=== PATIENT | female | born 1940 | race Caucasian/White ===

== ENCOUNTER 2016-08-11 12:48 | Emergency (ER) | payer BC, MEDICARE ==
[2016-08-11 13:04] VITALS: TEMP 97.4
[2016-08-11 14:19] LABS: Basophils % (A) 0 %; CH 31.1; CHCM 32.1; Eosinophils # (A) 0.1 k/uL (0-0.7); Eosinophils % (A) 0 %; HCT 49.9 % (34.0-46.0); HDW 2.54; HGB 15.6 gm/dL (11.4-16.0); Luc # (Auto) 0.12; Luc % (Auto) 1; Lymphocytes # (A) 1.9 k/uL (1.0-4.8); Lymphocytes % (A) 17 %; MCH 30.4 pg (25.0-35.0); MCHC 31.3 g/dL (31.0-37.0); MCV 97.4 fL (80.0-100.0); Mean Platelet Volume 7.5; Monocytes # (A) 0.9 k/uL (0-1.0); Monocytes % (A) 8 %; Neutrophils # (A) 8.1 k/uL (1.3-7.7); Neutrophils % (A) 73 %; RBC 5.12 m/uL (3.80-5.40); RDW 14.7 % (11.5-15.5); WBC 11.1 k/uL (3.8-10.6); WBC (Perox) 11.35
--- NOTE | 2016-08-11 14:23 | XR ---
EXAMINATION TYPE: XR chest 1V portable DATE OF EXAM: 08/11/2016 2:18 PM COMPARISON: Prior chest x-ray 29 July 2016 HISTORY: Dyspnea TECHNIQUE: Single frontal view of the chest is obtained. FINDINGS: There is no focal air space opacity, pleural effusion, or pneumothorax seen. The cardiac silhouette size is within normal limits. Patient is rotated, there are overlying cardiac leads. Promi nent lung volume may be indicative of underlying COPD. Interstitium is mildly prominent. Postop patterson e noted to the lower thoracic vertebral body as on previous exam. The osseous structures are intact. IMPRESSION: No acute process.
[2016-08-11 14:35] LABS: Calcium 9.4 mg/dL (8.4-10.2); Magnesium 1.9 mg/dL (1.6-2.3); Total Bilirubin 0.6 mg/dL (0.2-1.3); Total Protein 6.6 g/dL (6.3-8.2)
[2016-08-11] MEDS ORDERED: predniSONE 20 MG TAB PO STA (14:35)
[2016-08-11 15:04] LABS: ABG PH 7.41 (7.35-7.45)
[2016-08-11 15:05] LABS: ABG PCO2 28 mmHg (35-45)
[2016-08-11 15:07] LABS: ABG HCO3 18 mmol/L (21-25); ABG PO2 95 mmHg (83-108)
[2016-08-11 15:08] LABS: ABG Base Excess -5.9 mmol/L; ABG TCO2 19 mmol/L (19-24)
--- NOTE | 2016-08-11 15:47 | ED ---
Weakness HPI - General Chief complaint: Weakness Stated complaint: Weakness Time Seen by Provider: 08/11/16 13:11 Source: patient, RN notes reviewed Mode of arrival: ambulatory Limitations: no limitations - History of Present Illness Initial comments: Patient's a 76-year-old woman with history of COPD who presents to be evaluated for generalized fatigue, dyspnea, poor appetite, and her family also notes that she had been having very depressed mood over the prior couple of days. They do acknowledge that her mood seems to have improved here. The patient does admit some depression but denies suicidality. Family was also concerned because at one point yesterday they had noted she was attempting to light a cigarette using a bottle And they were concerned she may been hallucinating. She has not been hallucinating today. Patient denies fever or chills. She denies change in sputum. Patient denies chest pain, change in urination, leg pain or swelling. MD Complaint: generalized weakness, lack of energy, difficulty walking -: days(s) Location: generalized Improves with: none Worsens with: none Associated Symptoms: loss of appetite, shortness of breath - Related Data Home Medications Medication Instructions Recorded Confirmed Sertraline HCl [Zoloft] 200 mg PO DAILY 09/16/14 08/11/16 Levothyroxine Sodium [Synthroid] 75 mcg PO DAILY 11/25/14 08/11/16 Montelukast [Singulair] 10 mg PO HS 11/25/14 08/11/16 Acetaminophen Tab [Tylenol Tab] 500 mg PO Q4H PRN 12/02/14 08/11/16 Cyclobenzaprine [Flexeril] 10 mg PO HS 05/12/15 08/11/16 Metoprolol Tartrate [Lopressor] 25 mg PO BID 05/12/15 08/11/16 Sennosides-Docusate Sodium 1 tab PO HS PRN 05/12/15 08/11/16 [Senokot-S] Warfarin [Coumadin] 2.5 mg PO HS 05/12/15 08/11/16 Atorvastatin [Lipitor] 40 mg PO HS 10/20/15 08/11/16 Gabapentin [Neurontin] 1,200 mg PO BID 10/20/15 08/11/16 Ipratropium-Albuterol Nebulize 3 ml INHALATION QID PRN 10/20/15 08/11/16 [Duoneb 0.5 mg-3 mg/3 ml Soln] Multivitamins, Thera [Multivitamin] 1 tab PO DAILY 10/20/15 08/11/16 Nitroglycerin Sl Tabs [Nitrostat] 0.4 mg SUBLINGUAL Q5M PRN 10/20/15 08/11/16 Previous Rx's Medication Instructions Recorded predniSONE 60 mg PO DAILY #30 tab 08/11/16 Allergies Allergy/AdvReac Type Severity Reaction Status Date / Time iodine Allergy Severe throat Verified 08/11/16 13:37 Swelling latex Allergy Severe throat Verified 08/11/16 13:37 swelling codeine Allergy Unknown Verified 08/11/16 13:37 Penicillins Allergy Rash/Hives Verified 08/11/16 13:37 doxycycline AdvReac Nausea & Verified 08/11/16 13:37 Vomiting Review of Systems ROS Statement: Those systems with pertinent positive or pertinent negative responses have been documented in the HPI. ROS Other: All systems not noted in ROS Statement are negative. Constitutional: Reports: weakness (Generalized). Denies: fever, chills Respiratory: Reports: cough, dyspnea, wheezes. Denies: hemoptysis Cardiovascular: Reports: dyspnea on exertion. Denies: chest pain, palpitations , orthopnea, edema, syncope Gastrointestinal: Denies: abdominal pain, nausea, vomiting, melena Genitourinary: Denies: dysuria, hematuria Musculoskeletal: Denies: back pain Skin: Denies: rash Neurological: Reports: as per HPI, weakness (Generalized), confusion. 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 stone arthroscopic knee surgery, bilateral cataract removal, Past Anesthesia/Blood Transfusion Reactions: No Reported Reaction Additional Past Anesthesia/Blood Transfusion Reaction / Comment(s): . Date of Last Stent Placement:: 2014(not sure month) Past Psychological History: Anxiety Additional Psychological History / Comment(s): . Smoking Status: Current some day smoker Past Alcohol Use History: None Reported Additional Past Alcohol Use History / Comment(s): started smoking age 30 Past Drug Use History: None Reported - Past Family History Father Family Medical History: Cancer Additional Family Medical History / Comment(s): Father had massive GA at age 66 yrs. He from CVA at age 79yrs. Mother Family Medical History: CVA/TIA, Deep Vein Thrombosis (DVT), Pulmonary Embolus Additional Family Medical History / Comment(s): Mother of CVA at age 79 yrs. General Exam Limitations: no limitations General appearance: alert, in no apparent distress, cachectic Head exam: Present: atraumatic, normocephalic Eye exam: Present: normal appearance. Absent: scleral icterus, conjunctival injection ENT exam: Present: mucous membranes dry Neck exam: Present: normal inspection Respiratory exam: Present: wheezes, decreased breath sounds. Absent: respiratory distress, rales, rhonchi, stridor, chest wall tenderness Cardiovascular Exam: Present: regular rate, normal rhythm, normal heart sounds. Absent: systolic murmur, diastolic murmur, rubs, gallop GI/Abdominal exam: Present: soft. Absent: distended, tenderness, guarding, rebound Extremities exam: Present: normal inspection, normal capillary refill. Absent: pedal edema, calf tenderness Back exam: Present: normal inspection. Absent: CVA tenderness (R), CVA tenderness (L) Neurological exam: Present: alert, oriented X3, CN II-XII intact, normal gait. Absent: motor sensory deficit Psychiatric exam: Present: normal affect Skin exam: Present: warm, dry, intact. Absent: cyanosis, diaphoretic, pallor Course Vital Signs 08/11/16 08/11/16 12:59 16:05 Temperature 97.4 F L Pulse Rate 50 L 70 Respiratory 18 16 Rate Blood Pressure 136/82 153/88 O2 Sat by Pulse 100 93 L Oximetry EKG Findings - EKG Results: EKG: interpreted by ERMD, sinus rhythm, normal axis, normal QRS, normal ST/T Medical Decision Making - Medical Decision Making Patient is a 76-year-old woman who does appear to be having COPD exacerbation. She had treatments and steroids here. The patient was then feeling better. I discussed admission, given her second visit this month. The patient states that her preference is to go home. I am concerned about how she is doing but will defer at this point to her request to go home, I did phone the office machines sales representative and she can be seen at 8:30 in the morning. Discussed return parameters and the patient will return should her symptoms recur or if there is any worsening in anyway. - Lab Data Result diagrams: 08/11/16 12:41 08/11/16 12:41 Lab Results 08/11/16 08/11/16 08/11/16 Range/Units 12:41 12:41 12:41 WBC 11.1 H (3.8-10.6) k/uL RBC 5.12 (3.80-5.40) m/uL Hgb 15.6 (11.4-16.0) gm/dL Hct 49.9 H (34.0-46.0) % MCV 97.4 (80.0-100.0) fL MCH 30.4 (25.0-35.0) pg MCHC 31.3 (31.0-37.0) g/dL RDW 14.7 (11.5-15.5) % Plt Count 365 (150-450) k/uL Neutrophils % 73 % Lymphocytes % 17 % Monocytes % 8 % Eosinophils % 0 % Basophils % 0 % Neutrophils # 8.1 H (1.3-7.7) k/uL Lymphocytes # 1.9 (1.0-4.8) k/uL Monocytes # 0.9 (0-1.0) k/uL Eosinophils # 0.1 (0-0.7) k/uL Basophils # 0.0 (0-0.2) k/uL Sample Site ABG pH (7.35-7.45) ABG pCO2 (35-45) mmHg ABG pO2 (83-108) mmHg ABG HCO3 (21-25) mmol/L ABG Total CO2 (19-24) mmol/L ABG O2 Saturation (94-97) % ABG Base Excess mmol/L FiO2 % Sodium 145 (137-145) mmol/L Potassium 4.0 (3.5-5.1) mmol/L Chloride 110 H (98-107) mmol/L Carbon Dioxide 21 L (22-30) mmol/L Anion Gap 14 mmol/L BUN 15 (7-17) mg/dL Creatinine 1.11 H (0.52-1.04) mg/dL Est GFR (MDRD) Af Amer 58 (>60 ml/min/1.73 sqM) Est GFR (MDRD) Non-Af 48 (>60 ml/min/1.73 sqM) Glucose 113 H (74-99) mg/dL Plasma Lactic Acid Darryl 1.2 (0.7-2.0) mmol/L Calcium 9.4 (8.4-10.2) mg/dL Magnesium 1.9 (1.6-2.3) mg/dL Total Bilirubin 0.6 (0.2-1.3) mg/dL AST 25 (14-36) U/L ALT 32 (9-52) U/L Alkaline Phosphatase 86 (38-126) U/L Troponin I (0.000-0.034) ng/mL Total Protein 6.6 (6.3-8.2) g/dL Albumin 3.6 (3.5-5.0) g/dL 08/11/16 08/11/16 Range/Units 12:41 14:56 WBC (3.8-10.6) k/uL RBC (3.80-5.40) m/uL Hgb (11.4-16.0) gm/dL Hct (34.0-46.0) % MCV (80.0-100.0) fL MCH (25.0-35.0) pg MCHC (31.0-37.0) g/dL RDW (11.5-15.5) % Plt Count (150-450) k/uL Neutrophils % % Lymphocytes % % Monocytes % % Eosinophils % % Basophils % % Neutrophils # (1.3-7.7) k/uL Lymphocytes # (1.0-4.8) k/uL Monocytes # (0-1.0) k/uL Eosinophils # (0-0.7) k/uL Basophils # (0-0.2) k/uL Sample Site LRAD ABG pH 7.41 (7.35-7.45) ABG pCO2 28 L (35-45) mmHg ABG pO2 95 (83-108) mmHg ABG HCO3 18 L (21-25) mmol/L ABG Total CO2 19 (19-24) mmol/L ABG O2 Saturation 98.0 H (94-97) % ABG Base Excess -5.9 mmol/L FiO2 28 % Sodium (137-145) mmol/L Potassium (3.5-5.1) mmol/L Chloride (98-107) mmol/L Carbon Dioxide (22-30) mmol/L Anion Gap mmol/L BUN (7-17) mg/dL Creatinine (0.52-1.04) mg/dL Est GFR (MDRD) Af Amer (>60 ml/min/1.73 sqM) Est GFR (MDRD) Non-Af (>60 ml/min/1.73 sqM) Glucose (74-99) mg/dL Plasma Lactic Acid Darryl (0.7-2.0) mmol/L Calcium (8.4-10.2) mg/dL Magnesium (1.6-2.3) mg/dL Total Bilirubin (0.2-1.3) mg/dL AST (14-36) U/L ALT (9-52) U/L Alkaline Phosphatase (38-126) U/L Troponin I <0.012 (0.000-0.034) ng/mL Total Protein (6.3-8.2) g/dL Albumin (3.5-5.0) g/dL Disposition Clinical Impression: COPD exacerbation Disposition: HOME SELF-CARE Condition: Fair Instructions: COPD (Chronic Obstructive Pulmonary Disease) (ED) Additional Instructions: As we discussed, follow-up in the clinic tomorrow. Dr. Ackerman will see you at 8: 30 AM. Return here immediately if there is any worsening or change in her condition. Prescriptions: predniSONE 60 mg PO DAILY #30 tab Referrals: Alan Gao MD [Primary Care Provider] - 1-2 days
[2016-08-11 16:07] VITALS: BP 153/88; PULSE 70; RESP 16
== END 2016-08-11 16:13 | disposition home or self-care (01) ==
LOC: EC 12:48
DX: J44.1 Chronic obstructive pulmonary disease with (acute) exacerbation (principal); J45.909 Unspecified asthma, uncomplicated; F32.9 Major depressive disorder, single episode, unspecified; I25.2 Old myocardial infarction; E07.9 Disorder of thyroid, unspecified; I48.91 Unspecified atrial fibrillation; I25.10 Atherosclerotic heart disease of native coronary artery without angina pectoris; I10 Essential (primary) hypertension; E78.5 Hyperlipidemia, unspecified; F41.9 Anxiety disorder, unspecified; M32.9 Systemic lupus erythematosus, unspecified; Z86.73 Personal history of transient ischemic attack (TIA), and cerebral infarction without residual deficits; Z95.5 Presence of coronary angioplasty implant and graft; Z79.899 Other long term (current) drug therapy; Z79.01 Long term (current) use of anticoagulants; Z88.1 Allergy status to other antibiotic agents; Z91.040 Latex allergy status; Z88.0 Allergy status to penicillin; Z88.5 Allergy status to narcotic agent
CPT/HCPCS: 99285; 36415; 36600; 80053; 82805; 83605; 83735; 84484; 85025; 71010; J7512

== ENCOUNTER → 2016-11-11 | Outpatient (CLI) | payer MEDICARE ==
--- NOTE | 2016-11-15 08:39 | MM ---
Reason for exam: screening (asymptomatic). Last mammogram was performed 1 year and 4 months ago. History: Patient is postmenopausal and has history of other cancer at age 72. Family history of breast cancer in paternal aunt at age 40. Took estrogen for 6 years 6 months. Took progesterone for 6 years 6 months. Physical Findings: A clinical breast exam by your physician is recommended on an annual basis and results should be correlated with mammographic findings. MG 3D Screening Mammo W/Cad Bilateral CC and MLO view(s) were taken. Prior study comparison: July 20, 2015, bilateral MG screening mammo w CAD. October 24, 2011, bilateral digital screening mammo w/CAD. No significant changes when compared with prior studies. ASSESSMENT: Benign, BI-RAD 2 RECOMMENDATION: Routine screening mammogram of both breasts in 1 year. Manage patient on a clinical basis regarding pain.
== END | disposition home or self-care (01) ==
LOC: RADMAMWWP 10:56
PROVIDERS: ATTEND Internal Medicine Geriatric Medicine
DX: Z12.31 Encounter for screening mammogram for malignant neoplasm of breast (principal)
CPT/HCPCS: 77063; G0202

== ENCOUNTER 2017-01-14 11:03 | Emergency (ER) | payer MEDICARE ==
[2017-01-14] MEDS ORDERED: ALBUTEROL NEBULIZED 2.5 MG/3 ML INHALATION STA (11:56)
--- NOTE | 2017-01-14 12:01 | ED ---
General Adult HPI - General Chief complaint: Recheck/Abnormal Lab/Rx Stated complaint: bronchitis Time Seen by Provider: 01/14/17 11:32 Source: patient Mode of arrival: wheelchair Limitations: no limitations - History of Present Illness Initial comments: 76-year-old female presents with cough. She's had a cough for the last several weeks. History of COPD has been wheezing. Was treated about 4 weeks ago with Bactrim, is not sure she's had other antibiotics. She has no shortness of breath has a nebulizer but has not been using it. Has had mild ear discomfort no sore throat bringing up some phlegm. No chest pain. Has had a history of coronary disease with stents she's had a autoimmune disease no history diabetes seizures. She's had stroke with carotid bypass in the past - Related Data Home Medications Medication Instructions Recorded Confirmed Sertraline HCl [Zoloft] 200 mg PO DAILY 09/16/14 01/14/17 Levothyroxine Sodium [Synthroid] 75 mcg PO DAILY 11/25/14 01/14/17 Montelukast [Singulair] 10 mg PO HS 11/25/14 01/14/17 Acetaminophen Tab [Tylenol Tab] 500 mg PO Q4H PRN 12/02/14 01/14/17 Metoprolol Tartrate [Lopressor] 12.5 mg PO BID 05/12/15 01/14/17 Warfarin [Coumadin] 2.5 mg PO HS 05/12/15 01/14/17 Atorvastatin [Lipitor] 40 mg PO HS 10/20/15 01/14/17 Gabapentin [Neurontin] 1,200 mg PO BID 10/20/15 01/14/17 Nitroglycerin Sl Tabs [Nitrostat] 0.4 mg SUBLINGUAL Q5M PRN 10/20/15 01/14/17 ALPRAZolam [Xanax] 1 mg PO Q8HR PRN 01/14/17 01/14/17 Albuterol Nebulized [Ventolin 2.5 mg INHALATION RT-QID PRN 01/14/17 01/14/17 Nebulized] Aspirin EC [Ecotrin Low Dose] 81 mg PO DAILY 01/14/17 01/14/17 Baclofen 10 mg PO TID PRN 01/14/17 01/14/17 Previous Rx's Medication Instructions Recorded Levofloxacin [Levaquin] 500 mg PO DAILY #5 tab 01/14/17 predniSONE 10 mg PO DAILY #5 tab 01/14/17 Allergies Allergy/AdvReac Type Severity Reaction Status Date / Time iodine Allergy Severe throat Verified 01/14/17 11:10 Swelling latex Allergy Severe throat Verified 01/14/17 11:10 swelling codeine Allergy Nausea & Verified 01/14/17 12:10 Vomiting Penicillins Allergy Rash/Hives Verified 01/14/17 11:10 doxycycline AdvReac Nausea & Verified 01/14/17 11:10 Vomiting Review of Systems ROS Statement: Those systems with pertinent positive or pertinent negative responses have been documented in the HPI. ROS Other: All systems not noted in ROS Statement are negative. Constitutional: Denies: fever, chills ENT: Reports: ear pain. Denies: throat pain Respiratory: Reports: cough, wheezes Cardiovascular: Denies: chest pain, palpitations Gastrointestinal: Denies: abdominal pain, nausea, vomiting Skin: Denies: rash Neurological: Denies: headache, weakness Hematological/Lymphatic: Denies: easy bleeding, easy bruising Past Medical History Past Medical History: Atrial Fibrillation, Asthma, Coronary Artery Disease (CAD) , Chest Pain / Angina, COPD, CVA/TIA, Hyperlipidemia, Hypertension, Myocardial Infarction (ND), Osteoarthritis (OA), Thyroid Disorder, Vascular Disorder Additional Past Medical History / Comment(s): LUPUS , RIGHT SIDED WEAKNESS and 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 stone arthroscopic knee surgery, bilateral cataract removal, Past Anesthesia/Blood Transfusion Reactions: No Reported Reaction Additional Past Anesthesia/Blood Transfusion Reaction / Comment(s): . Date of Last Stent Placement:: 2014(not sure month) Past Psychological History: Anxiety Smoking Status: Current some day smoker Past Alcohol Use History: None Reported Past Drug Use History: None Reported - Past Family History Father Family Medical History: Cancer Additional Family Medical History / Comment(s): Father had massive ND at age 66 yrs. He from CVA at age 79yrs. Mother Family Medical History: CVA/TIA, Deep Vein Thrombosis (DVT), Pulmonary Embolus Additional Family Medical History / Comment(s): Mother of CVA at age 79 yrs. General Exam Limitations: no limitations General appearance: alert, in no apparent distress Head exam: Present: atraumatic Eye exam: Present: normal appearance, PERRL, EOMI ENT exam: Present: normal oropharynx, mucous membranes moist Neck exam: Present: normal inspection Respiratory exam: Present: wheezes (Mild bilaterally heard better anteriorly) Cardiovascular Exam: Present: regular rate, normal heart sounds GI/Abdominal exam: Present: soft. Absent: tenderness Neurological exam: Present: alert, CN II-XII intact Psychiatric exam: Present: normal affect, normal mood Skin exam: Present: warm, dry Course Vital Signs 01/14/17 01/14/17 01/14/17 11:07 12:36 12:54 Temperature 97.0 F L 97.4 F L Pulse Rate 69 58 L 53 L Respiratory 20 18 Rate Blood Pressure 146/68 O2 Sat by Pulse 98 95 Oximetry 01/14/17 01/14/17 13:00 14:25 Temperature 98 F Pulse Rate 58 L 65 Respiratory 16 Rate Blood Pressure 143/69 O2 Sat by Pulse 98 Oximetry Medical Decision Making - Medical Decision Making Chest x-ray is negative white count is satisfactory lab is satisfactory we'll treat his asthmatic bronchitis we'll give one dose of Rocephin in IV steroid. Sent home with Levaquin and steroids. PT/INR was recently checked at the doctor 's office was satisfactory she missed work from last night we have explained cannot take the warfarin while she was using Levaquin and to follow-up with Dr. Gao next couple days. - Lab Data Result diagrams: 01/14/17 12:32 01/14/17 12:32 Lab Results 01/14/17 01/14/17 Range/Units 12:32 12:32 WBC 8.3 (3.8-10.6) k/uL RBC 4.16 (3.80-5.40) m/uL Hgb 12.9 (11.4-16.0) gm/dL Hct 40.3 (34.0-46.0) % MCV 96.9 (80.0-100.0) fL MCH 31.0 (25.0-35.0) pg MCHC 32.0 (31.0-37.0) g/dL RDW 14.8 (11.5-15.5) % Plt Count 237 (150-450) k/uL Neutrophils % 64 % Lymphocytes % 25 % Monocytes % 8 % Eosinophils % 1 % Basophils % 0 % Neutrophils # 5.3 (1.3-7.7) k/uL Lymphocytes # 2.1 (1.0-4.8) k/uL Monocytes # 0.7 (0-1.0) k/uL Eosinophils # 0.1 (0-0.7) k/uL Basophils # 0.0 (0-0.2) k/uL Sodium 140 (137-145) mmol/L Potassium 4.5 (3.5-5.1) mmol/L Chloride 106 (98-107) mmol/L Carbon Dioxide 24 (22-30) mmol/L Anion Gap 10 mmol/L BUN 14 (7-17) mg/dL Creatinine 0.94 (0.52-1.04) mg/dL Est GFR (MDRD) Af Amer >60 (>60 ml/min/1.73 sqM) Est GFR (MDRD) Non-Af 58 (>60 ml/min/1.73 sqM) Glucose 82 (74-99) mg/dL Calcium 8.8 (8.4-10.2) mg/dL Total Bilirubin 0.6 (0.2-1.3) mg/dL AST 25 (14-36) U/L ALT 25 (9-52) U/L Alkaline Phosphatase 94 (38-126) U/L Total Protein 6.6 (6.3-8.2) g/dL Albumin 3.8 (3.5-5.0) g/dL - EKG Data -: EKG Interpreted by Me 01/14/17 12:28 EKG 01/14/2017 1219 ventricular rate 50 bpm, CA interval 164 ms, QRS duration 72 ms, QT 434 ms sinus bradycardia possible left atrial enlargement and nonspecific ST-T abnormality poor baseline in V2 and V5 - Radiology Data Radiology results: report reviewed No acute changes on chest x-ray Disposition Clinical Impression: Asthmatic bronchitis Disposition: HOME SELF-CARE Condition: Good Instructions: Bronchospasm (ED) Additional Instructions: Hold Coumadin for 5 days Prescriptions: Levofloxacin [Levaquin] 500 mg PO DAILY #5 tab predniSONE 10 mg PO DAILY #5 tab Referrals: Alan Gao MD [Primary Care Provider] - 1-2 days Time of Disposition: 14:42
[2017-01-14 12:43] LABS: Basophils % (A) 0 %; CH 30.8; Eosinophils # (A) 0.1 k/uL (0-0.7); Eosinophils % (A) 1 %; HCT 40.3 % (34.0-46.0); HDW 2.47; HGB 12.9 gm/dL (11.4-16.0); Luc # (Auto) 0.13; Luc % (Auto) 2; Lymphocytes # (A) 2.1 k/uL (1.0-4.8); Lymphocytes % (A) 25 %; MCV 96.9 fL (80.0-100.0); Mean Platelet Volume 7.6; Monocytes # (A) 0.7 k/uL (0-1.0); Monocytes % (A) 8 %; Neutrophils # (A) 5.3 k/uL (1.3-7.7); Neutrophils % (A) 64 %; RBC 4.16 m/uL (3.80-5.40); RDW 14.8 % (11.5-15.5); WBC 8.3 k/uL (3.8-10.6); WBC (Perox) 8.66
[2017-01-14 12:51] LABS: ALT 25 U/L (9-52); AST 25 U/L (14-36); Alkaline Phosphatase 94 U/L (38-126); Anion Gap 10 mmol/L; Blood Urea Nitrogen 14 mg/dL (7-17); Calcium 8.8 mg/dL (8.4-10.2); Carbon Dioxide 24 mmol/L (22-30); Chloride 106 mmol/L (98-107); Glucose 82 mg/dL (74-99); Non-African American GFR(MDRD) 58 (>60 ml/min/1.73 sqM); Potassium 4.5 mmol/L (3.5-5.1); Sodium 140 mmol/L (137-145); Total Bilirubin 0.6 mg/dL (0.2-1.3); Total Protein 6.6 g/dL (6.3-8.2)
--- NOTE | 2017-01-14 13:00 | XR ---
EXAMINATION TYPE: XR chest 2V DATE OF EXAM: 01/14/2017 COMPARISON: 08/11/2016 TECHNIQUE: PA and lateral views submitted. HISTORY: Difficulty in breathing FINDINGS: The lungs are clear and there is no pneumothorax, pleural effusion, or focal pneumonia. Hyperinflat ion suggests COPD and there is arthropathy of the shoulders. Degenerative change of the spine. Compre ssion deformity with probable previous vertebroplasty noted. Suggestive coronary artery stenting. IMPRESSION: 1. No acute process.
[2017-01-14] MEDS ORDERED: methylPREDNISolone SOD SUCCI 125 MG/2 ML VIAL IV STA (13:48)
[2017-01-14 14:26] VITALS: BP 143/69; RESP 16
[2017-01-14 15:09] VITALS: PULSE 70; TEMP 97
== END 2017-01-14 15:09 | disposition home or self-care (01) ==
LOC: EC 11:03
DX: J45.909 Unspecified asthma, uncomplicated (principal); H92.09 Otalgia, unspecified ear; I48.91 Unspecified atrial fibrillation; I25.10 Atherosclerotic heart disease of native coronary artery without angina pectoris; E78.5 Hyperlipidemia, unspecified; I10 Essential (primary) hypertension; I25.2 Old myocardial infarction; E07.9 Disorder of thyroid, unspecified; R00.1 Bradycardia, unspecified; F41.9 Anxiety disorder, unspecified; F17.200 Nicotine dependence, unspecified, uncomplicated; Z86.73 Personal history of transient ischemic attack (TIA), and cerebral infarction without residual deficits; Z95.5 Presence of coronary angioplasty implant and graft; Z88.0 Allergy status to penicillin; Z88.1 Allergy status to other antibiotic agents; Z88.5 Allergy status to narcotic agent; Z91.040 Latex allergy status; Z91.048 Other nonmedicinal substance allergy status; Z79.01 Long term (current) use of anticoagulants; Z79.82 Long term (current) use of aspirin; Z79.899 Other long term (current) drug therapy
CPT/HCPCS: 99284; 96365; 96375; 36415; 94640; 93005; 80053; 85025; 87040; 71020; J2930; J0696

== ENCOUNTER 2017-01-28 11:59 | Emergency (ER) | payer MEDICARE ==
[2017-01-28] MEDS ORDERED: SODIUM CHLORIDE 0.9% 1,000 ML IV STA (12:52)
--- NOTE | 2017-01-28 13:31 | ED ---
General Adult HPI - General Chief complaint: Upper Respiratory Infection Stated complaint: Cough Time Seen by Provider: 01/28/17 12:45 Source: patient, family, RN notes reviewed Mode of arrival: wheelchair Limitations: no limitations - History of Present Illness Initial comments: 76-year-old female presents to the emergency department with a chief complaint of cough. Patient has had a cough for the past week or so. Patient states she' s been on antibiotics to put her on steroids and does not seem to getting better. Patient states that she is having a hard time in sleeping and this morning the state they were having a little bit of confusion with the patient. They state that they were concerned due to the continued cough and not getting better so they thought that they should be evaluated.Patient denies any recent fever, chills, chest pain, back pain, abdominal pain, nausea vomiting , numbness or tingling, dysuria or hematuria, constipation or diarrhea, headaches or visual changes, or any other current symptoms. - Related Data Home Medications Medication Instructions Recorded Confirmed Sertraline HCl [Zoloft] 200 mg PO DAILY 09/16/14 01/28/17 Levothyroxine Sodium [Synthroid] 75 mcg PO DAILY 11/25/14 01/28/17 Montelukast [Singulair] 10 mg PO HS 11/25/14 01/28/17 Metoprolol Tartrate [Lopressor] 12.5 mg PO BID 05/12/15 01/28/17 Warfarin [Coumadin] 2.5 mg PO DAILY 05/12/15 01/28/17 Atorvastatin [Lipitor] 40 mg PO HS 10/20/15 01/28/17 Gabapentin [Neurontin] 1,200 mg PO BID 10/20/15 01/28/17 Nitroglycerin Sl Tabs [Nitrostat] 0.4 mg SUBLINGUAL Q5M PRN 10/20/15 01/28/17 ALPRAZolam [Xanax] 1 mg PO Q8HR PRN 01/14/17 01/28/17 Albuterol Nebulized [Ventolin 2.5 mg INHALATION RT-QID PRN 01/14/17 01/28/17 Nebulized] Aspirin EC [Ecotrin Low Dose] 81 mg PO DAILY 01/14/17 01/28/17 Cyclobenzaprine HCl 10 mg PO HS 01/28/17 01/28/17 Loratadine-Pseudoeph 10-240 mg 1 tab PO DAILY PRN 01/28/17 01/28/17 [Claritin-D 24 Hr] guaiFENesin [Mucinex] 600 mg PO DAILY PRN 01/28/17 01/28/17 Previous Rx's Medication Instructions Recorded Azithromycin [Zithromax] 250 mg PO DIRECTED #6 tab 01/28/17 Allergies Allergy/AdvReac Type Severity Reaction Status Date / Time iodine Allergy Severe throat Verified 01/28/17 13:47 Swelling latex Allergy Severe throat Verified 01/28/17 13:47 swelling codeine Allergy Nausea & Verified 01/28/17 13:47 Vomiting Penicillins Allergy Rash/Hives Verified 01/28/17 13:47 doxycycline AdvReac Nausea & Verified 01/28/17 13:47 Vomiting Review of Systems ROS Statement: Those systems with pertinent positive or pertinent negative responses have been documented in the HPI. ROS Other: All systems not noted in ROS Statement are negative. 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 stone arthroscopic knee surgery, bilateral cataract removal, Past Anesthesia/Blood Transfusion Reactions: No Reported Reaction Additional Past Anesthesia/Blood Transfusion Reaction / Comment(s): . Date of Last Stent Placement:: 2014(not sure month) Past Psychological History: Anxiety Smoking Status: Current some day smoker Past Alcohol Use History: None Reported Past Drug Use History: None Reported - Past Family History Father Family Medical History: Cancer Additional Family Medical History / Comment(s): Father had massive AR at age 66 yrs. He from CVA at age 79yrs. Mother Family Medical History: CVA/TIA, Deep Vein Thrombosis (DVT), Pulmonary Embolus Additional Family Medical History / Comment(s): Mother of CVA at age 79 yrs. General Exam Limitations: no limitations General appearance: alert, in no apparent distress Head exam: Present: atraumatic, normocephalic, normal inspection Eye exam: Present: normal appearance, PERRL, EOMI. Absent: scleral icterus, conjunctival injection, periorbital swelling ENT exam: Present: normal exam, mucous membranes moist Neck exam: Present: normal inspection. Absent: tenderness, meningismus, lymphadenopathy Respiratory exam: Present: normal lung sounds bilaterally. Absent: respiratory distress, wheezes, rales, rhonchi, stridor Cardiovascular Exam: Present: regular rate, normal rhythm, normal heart sounds. Absent: systolic murmur, diastolic murmur, rubs, gallop, clicks GI/Abdominal exam: Present: soft, normal bowel sounds. Absent: distended, tenderness, guarding, rebound, rigid Neurological exam: Present: alert, oriented X3 Psychiatric exam: Present: normal affect, normal mood Skin exam: Present: warm, dry, intact, normal color. Absent: rash Course Vital Signs 01/28/17 01/28/17 01/28/17 12:04 13:00 14:54 Temperature 97.1 F L Pulse Rate 62 70 54 L Respiratory 18 18 20 Rate Blood Pressure 93/51 161/84 126/80 O2 Sat by Pulse 97 94 L 100 Oximetry 01/28/17 01/28/17 17:28 18:30 Temperature 98.1 F Pulse Rate 62 54 L Respiratory 18 20 Rate Blood Pressure 158/74 147/74 O2 Sat by Pulse 97 96 Oximetry EKG Findings - EKG Comments: EKG Findings:: Sinus bradycardia 54 bpm, normal axis, no atopy, no S-T depressions or elevations, Medical Decision Making - Medical Decision Making 76-year-old female presents to the emergency room chief complaint of cough and shortness of breath. This time imaging results are reviewed. Patient does appear to have dehydration she was given a liter of fluids here due to CHF we did hydrate more. Patient did appear to have bumped creatinine. We did discuss this with the family. We discussed increasing fluids. Patient has had a cough and did present with a headache. This time CT is negative as well as chest x-ray. She has been on multiple rounds of antibiotics for home. We will put the patient on azithromycin for home. We did discuss close follow-up with her doctor and recheck of the kidney function. Family stated they understood and they are in agreement pain. Patient is sleeping the room and states that she is feeling better. He will be discharged - Lab Data Result diagrams: 01/28/17 13:30 01/28/17 13:30 Lab Results 01/28/17 01/28/17 01/28/17 Range/Units 13:30 13:30 13:30 WBC 12.5 H (3.8-10.6) k/uL RBC 4.39 (3.80-5.40) m/uL Hgb 13.4 (11.4-16.0) gm/dL Hct 40.1 (34.0-46.0) % MCV 91.3 D (80.0-100.0) fL MCH 30.6 (25.0-35.0) pg MCHC 33.5 (31.0-37.0) g/dL RDW 14.9 (11.5-15.5) % Plt Count 255 (150-450) k/uL Neutrophils % 68 % Lymphocytes % 23 % Monocytes % 7 % Eosinophils % 1 % Basophils % 0 % Neutrophils # 8.5 H (1.3-7.7) k/uL Lymphocytes # 2.9 (1.0-4.8) k/uL Monocytes # 0.9 (0-1.0) k/uL Eosinophils # 0.1 (0-0.7) k/uL Basophils # 0.0 (0-0.2) k/uL PT (9.0-12.0) sec INR (<1.1) APTT (22.0-30.0) sec D-Dimer (<0.60) mg/L FEU Sodium 135 L (137-145) mmol/L Potassium 3.7 (3.5-5.1) mmol/L Chloride 101 (98-107) mmol/L Carbon Dioxide 22 (22-30) mmol/L Anion Gap 12 mmol/L BUN 26 H (7-17) mg/dL Creatinine 1.40 H (0.52-1.04) mg/dL Est GFR (MDRD) Af Amer 44 (>60 ml/min/1.73 sqM) Est GFR (MDRD) Non-Af 37 (>60 ml/min/1.73 sqM) Glucose 85 (74-99) mg/dL Plasma Lactic Acid Darryl (0.7-2.0) mmol/L Calcium 9.1 (8.4-10.2) mg/dL Magnesium 2.1 (1.6-2.3) mg/dL Total Bilirubin 0.4 (0.2-1.3) mg/dL AST 22 (14-36) U/L ALT 29 (9-52) U/L Alkaline Phosphatase 87 (38-126) U/L Total Creatine Kinase 30 (30-135) U/L CK-MB (CK-2) 1.3 (0.0-2.4) ng/mL CK-MB (CK-2) Rel Index 4.3 Troponin I <0.012 (0.000-0.034) ng/mL NT-Pro-B Natriuret Pep pg/mL Total Protein 6.2 L (6.3-8.2) g/dL Albumin 3.7 (3.5-5.0) g/dL Urine Color Urine Appearance (Clear) Urine pH (5.0-8.0) Ur Specific [place] (1.001-1.035) Urine Protein (Negative) Urine Glucose (UA) (Negative) Urine Ketones (Negative) Urine Blood (Negative) Urine Nitrite (Negative) Urine Bilirubin (Negative) Urine Urobilinogen (<2.0) mg/dL Ur Leukocyte Esterase (Negative) Urine RBC (0-5) /hpf Urine WBC (0-5) /hpf Ur Squamous Epith Cells (0-4) /hpf Urine Bacteria (None) /hpf Hyaline Casts (0-2) /lpf 01/28/17 01/28/17 01/28/17 Range/Units 13:30 13:30 13:30 WBC (3.8-10.6) k/uL RBC (3.80-5.40) m/uL Hgb (11.4-16.0) gm/dL Hct (34.0-46.0) % MCV (80.0-100.0) fL MCH (25.0-35.0) pg MCHC (31.0-37.0) g/dL RDW (11.5-15.5) % Plt Count (150-450) k/uL Neutrophils % % Lymphocytes % % Monocytes % % Eosinophils % % Basophils % % Neutrophils # (1.3-7.7) k/uL Lymphocytes # (1.0-4.8) k/uL Monocytes # (0-1.0) k/uL Eosinophils # (0-0.7) k/uL Basophils # (0-0.2) k/uL PT 11.1 (9.0-12.0) sec INR 1.1 (<1.1) APTT 23.9 (22.0-30.0) sec D-Dimer 1.29 H (<0.60) mg/L FEU Sodium (137-145) mmol/L Potassium (3.5-5.1) mmol/L Chloride (98-107) mmol/L Carbon Dioxide (22-30) mmol/L Anion Gap mmol/L BUN (7-17) mg/dL Creatinine (0.52-1.04) mg/dL Est GFR (MDRD) Af Amer (>60 ml/min/1.73 sqM) Est GFR (MDRD) Non-Af (>60 ml/min/1.73 sqM) Glucose (74-99) mg/dL Plasma Lactic Acid Darryl 1.2 (0.7-2.0) mmol/L Calcium (8.4-10.2) mg/dL Magnesium (1.6-2.3) mg/dL Total Bilirubin (0.2-1.3) mg/dL AST (14-36) U/L ALT (9-52) U/L Alkaline Phosphatase (38-126) U/L Total Creatine Kinase (30-135) U/L CK-MB (CK-2) (0.0-2.4) ng/mL CK-MB (CK-2) Rel Index Troponin I (0.000-0.034) ng/mL NT-Pro-B Natriuret Pep pg/mL Total Protein (6.3-8.2) g/dL Albumin (3.5-5.0) g/dL Urine Color Yellow Urine Appearance Clear (Clear) Urine pH 6.5 (5.0-8.0) Ur Specific [place] 1.010 (1.001-1.035) Urine Protein Negative (Negative) Urine Glucose (UA) Negative (Negative) Urine Ketones Negative (Negative) Urine Blood Negative (Negative) Urine Nitrite Negative (Negative) Urine Bilirubin Negative (Negative) Urine Urobilinogen <2.0 (<2.0) mg/dL Ur Leukocyte Esterase Small H (Negative) Urine RBC 1 (0-5) /hpf Urine WBC 2 (0-5) /hpf Ur Squamous Epith Cells 3 (0-4) /hpf Urine Bacteria Rare H (None) /hpf Hyaline Casts 9 H (0-2) /lpf 01/28/17 Range/Units 13:30 WBC (3.8-10.6) k/uL RBC (3.80-5.40) m/uL Hgb (11.4-16.0) gm/dL Hct (34.0-46.0) % MCV (80.0-100.0) fL MCH (25.0-35.0) pg MCHC (31.0-37.0) g/dL RDW (11.5-15.5) % Plt Count (150-450) k/uL Neutrophils % % Lymphocytes % % Monocytes % % Eosinophils % % Basophils % % Neutrophils # (1.3-7.7) k/uL Lymphocytes # (1.0-4.8) k/uL Monocytes # (0-1.0) k/uL Eosinophils # (0-0.7) k/uL Basophils # (0-0.2) k/uL PT (9.0-12.0) sec INR (<1.1) APTT (22.0-30.0) sec D-Dimer (<0.60) mg/L FEU Sodium (137-145) mmol/L Potassium (3.5-5.1) mmol/L Chloride (98-107) mmol/L Carbon Dioxide (22-30) mmol/L Anion Gap mmol/L BUN (7-17) mg/dL Creatinine (0.52-1.04) mg/dL Est GFR (MDRD) Af Amer (>60 ml/min/1.73 sqM) Est GFR (MDRD) Non-Af (>60 ml/min/1.73 sqM) Glucose (74-99) mg/dL Plasma Lactic Acid Darryl (0.7-2.0) mmol/L Calcium (8.4-10.2) mg/dL Magnesium (1.6-2.3) mg/dL Total Bilirubin (0.2-1.3) mg/dL AST (14-36) U/L ALT (9-52) U/L Alkaline Phosphatase (38-126) U/L Total Creatine Kinase (30-135) U/L CK-MB (CK-2) (0.0-2.4) ng/mL CK-MB (CK-2) Rel Index Troponin I (0.000-0.034) ng/mL NT-Pro-B Natriuret Pep 1960 pg/mL Total Protein (6.3-8.2) g/dL Albumin (3.5-5.0) g/dL Urine Color Urine Appearance (Clear) Urine pH (5.0-8.0) Ur Specific [place] (1.001-1.035) Urine Protein (Negative) Urine Glucose (UA) (Negative) Urine Ketones (Negative) Urine Blood (Negative) Urine Nitrite (Negative) Urine Bilirubin (Negative) Urine Urobilinogen (<2.0) mg/dL Ur Leukocyte Esterase (Negative) Urine RBC (0-5) /hpf Urine WBC (0-5) /hpf Ur Squamous Epith Cells (0-4) /hpf Urine Bacteria (None) /hpf Hyaline Casts (0-2) /lpf - Radiology Data Radiology results: report reviewed, image reviewed Disposition Clinical Impression: Dehydration, Headache, Upper respiratory infection Disposition: HOME SELF-CARE Condition: Stable Instructions: Upper Respiratory Infection (ED) Additional Instructions: Please use medication as discussed. Please follow up with family doctor if symptoms have not improved over the next two days. Please return to the emergency room if your symptoms increase or worsen or for any other concerns. Prescriptions: Azithromycin [Zithromax] 250 mg PO DIRECTED #6 tab Referrals: Alan Gao MD [Primary Care Provider] - 1-2 days Time of Disposition: 19:00
[2017-01-28 13:52] LABS: Basophils % (A) 0 %; CH 30.4; CHCM 33.6; Eosinophils # (A) 0.1 k/uL (0-0.7); Eosinophils % (A) 1 %; HCT 40.1 % (34.0-46.0); HDW 2.55; HGB 13.4 gm/dL (11.4-16.0); Luc # (Auto) 0.18; Luc % (Auto) 2; Lymphocytes # (A) 2.9 k/uL (1.0-4.8); Lymphocytes % (A) 23 %; MCH 30.6 pg (25.0-35.0); MCHC 33.5 g/dL (31.0-37.0); Mean Platelet Volume 7.5; Monocytes # (A) 0.9 k/uL (0-1.0); Monocytes % (A) 7 %; Neutrophils # (A) 8.5 k/uL (1.3-7.7); Neutrophils % (A) 68 %; RBC 4.39 m/uL (3.80-5.40); RDW 14.9 % (11.5-15.5); WBC 12.5 k/uL (3.8-10.6); WBC (Perox) 12.46
[2017-01-28 13:53] LABS: Appearance,Urine Clear (Clear); Bacteria,Urine Rare /hpf; Bilirubin,Urine Negative (Negative); Glucose,Urine (UA) Negative (Negative); Ketones,Urine Negative (Negative); Leukocyte Esterase,Urine Small (Negative); MCV 91.3 fL (80.0-100.0); Nitrite,Urine Negative (Negative); PH, Urine 6.5 (5.0-8.0); Particle Count 2027; Protein,Urine Negative (Negative); RBC,Urine 1 /hpf (0-5); Squamous Epithelial Cell,Urine 3 /hpf (0-4); UA Billing (MACRO vs. MICRO) MICRO; Urobilinogen,Urine <2.0 mg/dL (<2.0); WBC,Urine 2 /hpf (0-5)
[2017-01-28 14:05] LABS: Calcium 9.1 mg/dL (8.4-10.2); INR 1.1 (<1.1); Magnesium 2.1 mg/dL (1.6-2.3); Partial Thromboplastin Time 23.9 sec (22.0-30.0); Potassium 3.7 mmol/L (3.5-5.1); Prothrombin Time 11.1 sec (9.0-12.0); Total Bilirubin 0.4 mg/dL (0.2-1.3); Total Protein 6.2 g/dL (6.3-8.2)
[2017-01-28 14:17] LABS: Creatine Kinase 30 U/L (30-135)
[2017-01-28 14:30] LABS: Creatine Kinase MB 1.3 ng/mL (0.0-2.4); Troponin I <0.012 ng/mL (0.000-0.034)
--- NOTE | 2017-01-28 14:48 | XR ---
EXAMINATION TYPE: XR chest 2V DATE OF EXAM: 01/28/2017 COMPARISON: 01/14/2017 INDICATION: Chest pain TECHNIQUE: Frontal and lateral views of the chest are obtained. FINDINGS: The heart size is normal. The pulmonary vasculature is normal. The lungs are clear. There is a wedge deformity of a lower thoracic vertebral level which may have h ad some vertebral plasty performed. IMPRESSION: 1. No acute pulmonary process.
--- NOTE | 2017-01-28 16:18 | CT ---
EXAMINATION TYPE: CT brain wo con DATE OF EXAM: 01/28/2017 COMPARISON: 09/21/2015 INDICATION: Pain DLP: mGycm, Automated exposure control for dose reduction was used. CONTRAST: None CT of the brain is performed utilizing 3 mm thick sections through the posterior fossa and 3 mm thick sections through the remaining calvarium. Study is performed within 24 hours of arrival to the hosp ital. No abnormal hyperdensity is present to suggest an acute intracranial hemorrhage. No mass lesion is evident. No acute infarcts are evident. Deep white matter chronic changes are present. There is an old infarct through the left parietal-occipital watershed region. Findings are stable from comparison. Ventricles and sulci are appropriate for the patient age. Paranasal sinuses and mastoid air cells within the [id number] are clear. IMPRESSIONS: 1. Chronic white matter changes and old watershed infarct on the left. 2. No acute intracranial process.
--- NOTE | 2017-01-28 18:13 | NM ---
EXAMINATION TYPE: NM pul vent and perfuse DATE OF EXAM: 01/28/2017 COMPARISON: Chest x-ray 01/28/2017 HISTORY: Elevated d-dimer TECHNIQUE: Utilizing inhalation of 71.1 mCi Tc 99m DTPA aerosol and intravenous injection of 5.4 mCi of Tc 99m MAA, ventilation and perfusion images are acquired post injection in multiple projections. FINDINGS: 01/28/2017 No moderate or large mismatched defects are present. No triple matched defects are evident. IMPRESSION: Low probability for pulmonary embolism
[2017-01-28 18:48] VITALS: BP 147/74; PULSE 54; RESP 20; TEMP 98.1
== END 2017-01-28 19:11 | disposition home or self-care (01) ==
LOC: EC 11:59
DX: J06.9 Acute upper respiratory infection, unspecified (principal); R51 Headache; E86.0 Dehydration; I25.10 Atherosclerotic heart disease of native coronary artery without angina pectoris; J45.909 Unspecified asthma, uncomplicated; I48.91 Unspecified atrial fibrillation; E78.5 Hyperlipidemia, unspecified; I10 Essential (primary) hypertension; I25.2 Old myocardial infarction; M19.90 Unspecified osteoarthritis, unspecified site; E07.9 Disorder of thyroid, unspecified; J44.9 Chronic obstructive pulmonary disease, unspecified; F41.9 Anxiety disorder, unspecified; F17.200 Nicotine dependence, unspecified, uncomplicated; Z79.82 Long term (current) use of aspirin; Z79.899 Other long term (current) drug therapy; Z79.01 Long term (current) use of anticoagulants; Z88.0 Allergy status to penicillin; Z91.040 Latex allergy status; Z88.5 Allergy status to narcotic agent; Z88.1 Allergy status to other antibiotic agents; Z88.8 Allergy status to other drugs, medicaments and biological substances; Z86.73 Personal history of transient ischemic attack (TIA), and cerebral infarction without residual deficits
CPT/HCPCS: 99284; 96360; 96361; 36415; 93005; 85379; 83880; 80053; 82550; 82553; 83605; 83735; 84484; 85025; 85610; 85730; 81001; 87040; 71020; 70450; 78582; A9540; A9567

== ENCOUNTER 2017-06-25 18:47 | Emergency (ER) | payer MEDICARE ==
[2017-06-25 19:05] VITALS: RESP 18
[2017-06-25] MEDS ORDERED: IPRATROPIUM-ALBUTEROL 3 ML NEB INHALATION STA (19:31)
--- NOTE | 2017-06-25 19:32 | ED ---
General Adult HPI - General Chief complaint: Recheck/Abnormal Lab/Rx Stated complaint: bruising Time Seen by Provider: 06/25/17 19:12 Source: patient, family, RN notes reviewed Mode of arrival: ambulatory Limitations: no limitations - History of Present Illness Initial comments: Patient is a pleasant 77-year-old female presenting to the emergency department with concerns regarding bruising patient had her Coumadin dose doubled around 3 weeks ago. Patient has had bruising of her legs and left thigh over the past week. Mild discomfort. Patient has had bleeding from her nose and mouth. Patient may have coughed up some blood. Patient is unclear if she may have vomited. Patient has had some dark stools. Patient did have a headache. No confusion or weakness. Patient is on Coumadin secondary to history of strokes. - Related Data Home Medications Medication Instructions Recorded Confirmed Sertraline HCl [Zoloft] 200 mg PO DAILY 09/16/14 06/25/17 Levothyroxine Sodium [Synthroid] 75 mcg PO DAILY 11/25/14 06/25/17 Montelukast [Singulair] 10 mg PO HS 11/25/14 06/25/17 Metoprolol Tartrate [Lopressor] 12.5 mg PO BID 05/12/15 06/25/17 Atorvastatin [Lipitor] 40 mg PO HS 10/20/15 06/25/17 Gabapentin [Neurontin] 1,200 mg PO BID 10/20/15 06/25/17 Aspirin EC [Ecotrin Low Dose] 81 mg PO DAILY 01/14/17 06/25/17 Cyclobenzaprine HCl 10 mg PO HS 01/28/17 06/25/17 ALPRAZolam [Xanax] 0.5 mg PO QID PRN 06/25/17 06/25/17 Tiotropium 18 Mcg/Puff [Spiriva] 1 cap INHALATION RT-DAILY 06/25/17 06/25/17 Warfarin [Coumadin] 5 mg PO SUMOTUTHFRSA 06/25/17 06/25/17 Warfarin [Coumadin] 7.5 mg PO WE 06/25/17 06/25/17 traMADol HCL [Ultram] 50 mg PO TID PRN 06/25/17 06/25/17 Previous Rx's Medication Instructions Recorded Moxifloxacin HCl [Avelox] 400 mg PO DAILY #7 tablet 06/25/17 Allergies Allergy/AdvReac Type Severity Reaction Status Date / Time iodine Allergy Severe throat Verified 06/25/17 19:04 Swelling latex Allergy Severe throat Verified 06/25/17 19:04 swelling codeine Allergy Nausea & Verified 06/25/17 19:04 Vomiting Penicillins Allergy Rash/Hives Verified 06/25/17 19:04 doxycycline AdvReac Nausea & Verified 06/25/17 19:04 Vomiting Review of Systems ROS Statement: Those systems with pertinent positive or pertinent negative responses have been documented in the HPI. ROS Other: All systems not noted in ROS Statement are negative. Constitutional: Denies: fever Eyes: Denies: eye pain ENT: Denies: ear pain Respiratory: Reports: cough. Denies: dyspnea Cardiovascular: Denies: chest pain Endocrine: Denies: fatigue Gastrointestinal: Denies: abdominal pain Genitourinary: Denies: dysuria Musculoskeletal: Denies: back pain Skin: Reports: other (Bruising) Neurological: Reports: headache. 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 stone arthroscopic knee surgery, bilateral cataract removal, Past Anesthesia/Blood Transfusion Reactions: No Reported Reaction Additional Past Anesthesia/Blood Transfusion Reaction / Comment(s): . Date of Last Stent Placement:: 2014(not sure month) Past Psychological History: Anxiety Smoking Status: Current some day smoker Past Alcohol Use History: None Reported Past Drug Use History: None Reported - Past Family History Father Family Medical History: Cancer Additional Family Medical History / Comment(s): Father had massive HI at age 66 yrs. He from CVA at age 79yrs. Mother Family Medical History: CVA/TIA, Deep Vein Thrombosis (DVT), Pulmonary Embolus Additional Family Medical History / Comment(s): Mother of CVA at age 79 yrs. General Exam Limitations: no limitations General appearance: alert, in no apparent distress Head exam: Present: atraumatic Eye exam: Present: normal appearance, PERRL ENT exam: Present: normal exam, normal oropharynx Neck exam: Present: normal inspection Respiratory exam: Present: wheezes Cardiovascular Exam: Present: regular rate, normal rhythm GI/Abdominal exam: Present: soft. Absent: tenderness Rectal exam: Present: normal inspection. Absent: black stool, bloody stool Extremities exam: Present: normal inspection Neurological exam: Present: alert, oriented X3, CN II-XII intact. Absent: motor sensory deficit Expanded Motor strength exam: RUE: 5, LUE: 5, RLE: 5, LLE: 5 Psychiatric exam: Present: normal affect, normal mood Skin exam: Present: other (Left thigh ecchymosis. Mild ecchymosis bilateral lower legs and feet) Course Vital Signs 06/25/17 06/25/17 19:00 20:28 Temperature 97.7 F Pulse Rate 70 62 Respiratory 18 Rate Blood Pressure 167/76 O2 Sat by Pulse 100 Oximetry EKG Findings - EKG Comments: EKG Findings:: Normal sinus rhythm 68. SD 152. QRS 82. QT 424. QTC 450. Normal axis. Normal QRS. No acute ST change. Medical Decision Making - Medical Decision Making Patient reevaluated and resting comfortably in bed. Patient and family updated on results and plan and need for close follow-up. Case was discussed in detail with Dr. Mackey who does agree with discharge. He recommends patient take Coumadin 2.5 mg daily for now which she does have. Also recommends Avelox 400 daily for the next week. - Lab Data Result diagrams: 06/25/17 19:36 06/25/17 19:36 Lab Results 06/25/17 06/25/17 06/25/17 Range/Units 19:36 19:36 19:36 WBC 14.3 H (3.8-10.6) k/uL RBC 3.66 L (3.80-5.40) m/uL Hgb 10.8 L (11.4-16.0) gm/dL Hct 36.2 (34.0-46.0) % MCV 98.8 (80.0-100.0) fL MCH 29.6 (25.0-35.0) pg MCHC 29.9 L (31.0-37.0) g/dL RDW 18.6 H (11.5-15.5) % Plt Count 465 H (150-450) k/uL Neutrophils % 61 % Lymphocytes % 22 % Monocytes % 8 % Eosinophils % 7 % Basophils % 1 % Neutrophils # 8.7 H (1.3-7.7) k/uL Lymphocytes # 3.2 (1.0-4.8) k/uL Monocytes # 1.2 H (0-1.0) k/uL Eosinophils # 1.0 H (0-0.7) k/uL Basophils # 0.1 (0-0.2) k/uL Hypochromasia Moderate Anisocytosis Slight Macrocytosis Slight PT (9.0-12.0) sec INR (<1.2) APTT (22.0-30.0) sec Sodium 139 (137-145) mmol/L Potassium 3.5 (3.5-5.1) mmol/L Chloride 108 H (98-107) mmol/L Carbon Dioxide 21 L (22-30) mmol/L Anion Gap 10 mmol/L BUN 15 (7-17) mg/dL Creatinine 1.00 (0.52-1.04) mg/dL Est GFR (MDRD) Af Amer >60 (>60 ml/min/1.73 sqM) Est GFR (MDRD) Non-Af 54 (>60 ml/min/1.73 sqM) Glucose 109 H (74-99) mg/dL Calcium 9.4 (8.4-10.2) mg/dL Total Bilirubin 1.3 (0.2-1.3) mg/dL AST 50 H (14-36) U/L ALT 40 (9-52) U/L Alkaline Phosphatase 90 (38-126) U/L Total Creatine Kinase 131 (30-135) U/L CK-MB (CK-2) 4.7 H* (0.0-2.4) ng/mL CK-MB (CK-2) Rel Index 3.6 Troponin I <0.012 (0.000-0.034) ng/mL Total Protein 7.9 (6.3-8.2) g/dL Albumin 4.3 (3.5-5.0) g/dL Stool Occult Blood (Negative) 06/25/17 06/25/17 Range/Units 19:36 20:56 WBC (3.8-10.6) k/uL RBC (3.80-5.40) m/uL Hgb (11.4-16.0) gm/dL Hct (34.0-46.0) % MCV (80.0-100.0) fL MCH (25.0-35.0) pg MCHC (31.0-37.0) g/dL RDW (11.5-15.5) % Plt Count (150-450) k/uL Neutrophils % % Lymphocytes % % Monocytes % % Eosinophils % % Basophils % % Neutrophils # (1.3-7.7) k/uL Lymphocytes # (1.0-4.8) k/uL Monocytes # (0-1.0) k/uL Eosinophils # (0-0.7) k/uL Basophils # (0-0.2) k/uL Hypochromasia Anisocytosis Macrocytosis PT 12.1 H (9.0-12.0) sec INR 1.2 H (<1.2) APTT 27.9 (22.0-30.0) sec Sodium (137-145) mmol/L Potassium (3.5-5.1) mmol/L Chloride (98-107) mmol/L Carbon Dioxide (22-30) mmol/L Anion Gap mmol/L BUN (7-17) mg/dL Creatinine (0.52-1.04) mg/dL Est GFR (MDRD) Af Amer (>60 ml/min/1.73 sqM) Est GFR (MDRD) Non-Af (>60 ml/min/1.73 sqM) Glucose (74-99) mg/dL Calcium (8.4-10.2) mg/dL Total Bilirubin (0.2-1.3) mg/dL AST (14-36) U/L ALT (9-52) U/L Alkaline Phosphatase (38-126) U/L Total Creatine Kinase (30-135) U/L CK-MB (CK-2) (0.0-2.4) ng/mL CK-MB (CK-2) Rel Index Troponin I (0.000-0.034) ng/mL Total Protein (6.3-8.2) g/dL Albumin (3.5-5.0) g/dL Stool Occult Blood Negative (Negative) - Radiology Data Radiology results: report reviewed (Computed tomography scan of the brain shows chronic small vessel ischemia. Old parietal infarct. No acute intercranial abnormality.), image reviewed (Two-view chest x-ray shows left upper lobe density.) Disposition Clinical Impression: Ecchymosis, Pneumonia Disposition: HOME SELF-CARE Condition: Stable Instructions: Ecchymosis (ED), Pneumonia (ED) Additional Instructions: Continued Coumadin 2.5 mg daily until follow-up. please follow-up with your doctor in the next day or 2 for recheck. You will need to have blood levels redrawn as well as repeat chest x-ray. Return for bleeding increased bruising, difficulty breathing, fevers, worsening symptoms or other concerns. Prescriptions: Moxifloxacin HCl [Avelox] 400 mg PO DAILY #7 tablet Referrals: Alan Gao MD [Primary Care Provider] - 1-2 days Time of Disposition: 21:19
[2017-06-25 19:53] LABS: Anisocytosis Slight; Basophils # (A) 0.1 k/uL (0-0.2); Basophils % (A) 1 %; CH 30.2; CHCM 30.9; Eosinophils % (A) 7 %; HCT 36.2 % (34.0-46.0); HDW 2.94; HGB 10.8 gm/dL (11.4-16.0); Hypochromasia Moderate; Luc # (Auto) 0.13; Luc % (Auto) 1; Lymphocytes # (A) 3.2 k/uL (1.0-4.8); Lymphocytes % (A) 22 %; MCH 29.6 pg (25.0-35.0); MCHC 29.9 g/dL (31.0-37.0); MCV 98.8 fL (80.0-100.0); Macrocytosis Slight; Mean Platelet Volume 7.7; Monocytes # (A) 1.2 k/uL (0-1.0); Monocytes % (A) 8 %; Neutrophils # (A) 8.7 k/uL (1.3-7.7); Neutrophils % (A) 61 %; RBC 3.66 m/uL (3.80-5.40); RDW 18.6 % (11.5-15.5); WBC 14.3 k/uL (3.8-10.6)
--- NOTE | 2017-06-25 20:01 | XR ---
EXAMINATION TYPE: XR chest 2V DATE OF EXAM: 06/25/2017 COMPARISON: 01/28/2017 HISTORY: Cough TECHNIQUE: Frontal and lateral views of the chest are obtained. FINDINGS: Heart size is normal. There is a poorly marginated 2 cm area of increased density over the left upper lobe and scapula. The other lung ocasio are clear. There are diaphragm is normal. There i s vertebroplasty of T12 noted. There are chest leads. Mediastinum WITHIN normal limits. IMPRESSION: Possible left upper lobe density that is new compared to last exam could be an infiltrat e. Shallow oblique views would be helpful for further evaluation if clinically indicated.
--- NOTE | 2017-06-25 20:18 | CT ---
EXAMINATION TYPE: CT brain wo con DATE OF EXAM: 06/25/2017 COMPARISON: 01/28/2017 HISTORY: Headache and leg bruising. CT DLP: 967.4 mGycm Automated exposure control for dose reduction was used. FINDINGS: There is cerebral cortical atrophy. There is old left parietal 4 x 2 cm cortical infarct. There is no mass effect nor midline shift. There is no sign of intracranial hemorrhage. The calvarium is intact. There is some hypodensity in the white matter around both lateral ventricles at the frontal horns. IMPRESSION: CHRONIC SMALL VESSEL ISCHEMIA. 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 NO ACUTE INTRACRANIAL ABNORMALITY. NO CHANGE.
[2017-06-25 20:25] LABS: ALT 40 U/L (9-52); AST 50 U/L (14-36); Alkaline Phosphatase 90 U/L (38-126); Anion Gap 10 mmol/L; Blood Urea Nitrogen 15 mg/dL (7-17); Calcium 9.4 mg/dL (8.4-10.2); Carbon Dioxide 21 mmol/L (22-30); Chloride 108 mmol/L (98-107); Creatine Kinase 131 U/L (30-135); Glucose 109 mg/dL (74-99); Non-African American GFR(MDRD) 54 (>60 ml/min/1.73 sqM); Sodium 139 mmol/L (137-145); Total Bilirubin 1.3 mg/dL (0.2-1.3); Total Protein 7.9 g/dL (6.3-8.2)
[2017-06-25 20:27] LABS: Potassium 3.5 mmol/L (3.5-5.1)
[2017-06-25] MEDS ORDERED: LORazepam 2 MG/ML INJ IV STA (20:35)
[2017-06-25 20:37] LABS: Troponin I <0.012 ng/mL (0.000-0.034)
[2017-06-25 20:38] LABS: Creatine Kinase MB 4.7 ng/mL (0.0-2.4)
[2017-06-25 20:59] LABS: INR 1.2 (<1.2); Prothrombin Time 12.1 sec (9.0-12.0)
[2017-06-25 21:03] LABS: Partial Thromboplastin Time 27.9 sec (22.0-30.0)
[2017-06-25 21:41] VITALS: BP 178/88; PULSE 88; TEMP 98.7
== END 2017-06-25 21:37 | disposition home or self-care (01) ==
LOC: EC 18:47
DX: J18.9 Pneumonia, unspecified organism (principal); R23.3 Spontaneous ecchymoses; I67.82 Cerebral ischemia; J98.4 Other disorders of lung; R19.5 Other fecal abnormalities; R51 Headache; E78.5 Hyperlipidemia, unspecified; I10 Essential (primary) hypertension; I25.10 Atherosclerotic heart disease of native coronary artery without angina pectoris; J44.9 Chronic obstructive pulmonary disease, unspecified; M19.90 Unspecified osteoarthritis, unspecified site; E07.9 Disorder of thyroid, unspecified; F41.9 Anxiety disorder, unspecified; I25.2 Old myocardial infarction; F17.200 Nicotine dependence, unspecified, uncomplicated; Z79.01 Long term (current) use of anticoagulants; Z79.82 Long term (current) use of aspirin; Z79.899 Other long term (current) drug therapy; Z88.0 Allergy status to penicillin; Z88.1 Allergy status to other antibiotic agents; Z88.5 Allergy status to narcotic agent; Z91.040 Latex allergy status; Z91.048 Other nonmedicinal substance allergy status; Z86.73 Personal history of transient ischemic attack (TIA), and cerebral infarction without residual deficits; Z86.79 Personal history of other diseases of the circulatory system; Z83.6 Family history of other diseases of the respiratory system
CPT/HCPCS: 36415; 94640; 93005; 80053; 82550; 82553; 84484; 85025; 85610; 85730; 82272; 71020; 70450; 99284; 96374; J2060

== ENCOUNTER 2017-08-17 15:06 | Emergency (ER) | payer MEDICARE ==
[2017-08-17] MEDS ORDERED: ALBUTEROL NEBULIZED 2.5 MG/3 ML INHALATION STA (16:12)
[2017-08-17] MEDS ORDERED: methylPREDNISolone SOD SUCCI 125 MG/2 ML VIAL IV STA ×2 (16:12→18:55)
[2017-08-17] MEDS ORDERED: IPRATROPIUM 0.5 MG/2.5 ML NEBU INHALATION STA (16:12)
--- NOTE | 2017-08-17 16:23 | ED ---
General Adult HPI - General Chief complaint: Dizziness Stated complaint: Dizzy Time Seen by Provider: 08/17/17 15:44 Source: patient, RN notes reviewed, old records reviewed Mode of arrival: wheelchair Limitations: no limitations - History of Present Illness Initial comments: 77-year-old female presenting with chief complaint of cough and congestion. Patient is a current smoker. She went to urgent care complaining of these symptoms, also complained of some blurry vision and was sent in for evaluation. Patient has past medical history of Fuch disease of the cornea. She does see an envelope machine adjuster for this. Blurry vision has been present for months. Denies any sudden worsening of her vision. She also complains of some dizziness. She is currently on Coumadin for history of multiple CVA. Denies any chest pain. Denies abdominal pain. Denies nausea vomiting or diarrhea. Denies focal weakness. - Related Data Home Medications Medication Instructions Recorded Confirmed Sertraline HCl [Zoloft] 200 mg PO DAILY 09/16/14 08/17/17 Levothyroxine Sodium [Synthroid] 75 mcg PO DAILY 11/25/14 08/17/17 Montelukast [Singulair] 10 mg PO HS 11/25/14 08/17/17 Atorvastatin [Lipitor] 40 mg PO HS 10/20/15 08/17/17 Gabapentin [Neurontin] 1,200 mg PO BID 10/20/15 08/17/17 Aspirin EC [Ecotrin Low Dose] 81 mg PO DAILY 01/14/17 08/17/17 Cyclobenzaprine HCl 10 mg PO HS 01/28/17 08/17/17 Metoprolol Tartrate [Lopressor] 25 mg PO BID 08/17/17 08/17/17 Warfarin [Coumadin] 2.5 mg PO HS 08/17/17 08/17/17 amLODIPine [Norvasc] 5 mg PO DAILY PRN 08/17/17 08/17/17 Previous Rx's Medication Instructions Recorded Azithromycin [Zithromax Z-pack] 0 mg PO DIRECTED #6 tab 08/17/17 methylPREDNISolone Dose Pack 4 mg PO DIRECTED #21 package 08/17/17 [Medrol Dose Pack] Allergies Allergy/AdvReac Type Severity Reaction Status Date / Time iodine Allergy Severe throat Verified 08/17/17 16:08 Swelling latex Allergy Severe throat Verified 08/17/17 16:08 swelling banana Allergy Unknown Verified 08/17/17 16:08 Smith And Derivatives Allergy Unknown Verified 08/17/17 16:08 [Smith] codeine Allergy Nausea & Verified 08/17/17 16:08 Vomiting Penicillins Allergy Rash/Hives Verified 08/17/17 16:08 doxycycline AdvReac Nausea & Verified 08/17/17 16:08 Vomiting seafood Allergy Unknown Uncoded 08/17/17 16:08 Review of Systems ROS Statement: Those systems with pertinent positive or pertinent negative responses have been documented in the HPI. ROS Other: All systems not noted in ROS Statement are negative. 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 stone arthroscopic knee surgery, bilateral cataract removal, Past Anesthesia/Blood Transfusion Reactions: No Reported Reaction Additional Past Anesthesia/Blood Transfusion Reaction / Comment(s): . Date of Last Stent Placement:: 2014(not sure month) Past Psychological History: Anxiety Smoking Status: Current every day smoker Past Alcohol Use History: None Reported Past Drug Use History: None Reported - Past Family History Father Family Medical History: Cancer Additional Family Medical History / Comment(s): Father had massive VA at age 66 yrs. He from CVA at age 79yrs. Mother Family Medical History: CVA/TIA, Deep Vein Thrombosis (DVT), Pulmonary Embolus Additional Family Medical History / Comment(s): Mother of CVA at age 79 yrs. General Exam Limitations: no limitations General appearance: alert, appears intoxicated Head exam: Present: atraumatic, normocephalic Eye exam: Present: normal appearance, other (Bilateral corneal clouding worse on the right) ENT exam: Present: normal exam Neck exam: Present: normal inspection. Absent: tenderness, meningismus Respiratory exam: Present: respiratory distress, wheezes, prolonged expiratory. Absent: normal lung sounds bilaterally Cardiovascular Exam: Present: regular rate, normal rhythm GI/Abdominal exam: Present: soft. Absent: distended, tenderness, guarding Extremities exam: Present: normal inspection, normal capillary refill. Absent: pedal edema, calf tenderness Neurological exam: Present: alert, oriented X3, CN II-XII intact. Absent: motor sensory deficit Psychiatric exam: Present: normal affect, normal mood Skin exam: Present: warm, dry, intact. Absent: cyanosis, diaphoretic Course Vital Signs 08/17/17 08/17/17 08/17/17 15:27 16:21 16:36 Temperature 97.8 F Pulse Rate 62 98 99 Respiratory 18 18 18 Rate Blood Pressure 202/81 O2 Sat by Pulse 97 Oximetry 08/17/17 08/17/17 17:29 18:50 Temperature 98.6 F 98.2 F Pulse Rate 98 62 Respiratory 18 20 Rate Blood Pressure 191/81 161/75 O2 Sat by Pulse 98 100 Oximetry EKG Findings - EKG Comments: EKG Findings:: EKG shows sinus bradycardia, rate of 58, left atrial enlargement , PA interval 172, castration 74, QTC 433, no signs of ischemia Medical Decision Making - Medical Decision Making 77-year-old female with cough and dyspnea. She is a current smoker. Patient also complained of blurry vision which is chronic. She has a corneal disease and seasonal envelope machine adjuster for this. There is corneal haziness bilaterally which is worse on the right. Vision in the right eye is severely impaired. Intraocular pressures both right and left are normal, ranging between 12 and 15. Laboratory studies are obtained, normal CBC, INR is 3.3, patient is instructed to hold 1 dose of Coumadin. Influenza negative, troponin negative. Chest x-ray is negative for focal pneumonia. CT of the brain shows old left parietal infarct, no acute changes. Patient will be treated for acute bronchitis. She will follow-up with her primary care physician and her envelope machine adjuster. - Lab Data Result diagrams: 08/17/17 15:50 08/17/17 15:50 Lab Results 08/17/17 08/17/17 08/17/17 Range/Units 15:50 15:50 15:50 WBC 7.2 (3.8-10.6) k/uL RBC 4.60 (3.80-5.40) m/uL Hgb 13.3 (11.4-16.0) gm/dL Hct 43.7 (34.0-46.0) % MCV 94.9 (80.0-100.0) fL MCH 28.9 (25.0-35.0) pg MCHC 30.4 L (31.0-37.0) g/dL RDW 15.0 (11.5-15.5) % Plt Count 259 (150-450) k/uL Neutrophils % 59 % Lymphocytes % 30 % Monocytes % 7 % Eosinophils % 2 % Basophils % 0 % Neutrophils # 4.2 (1.3-7.7) k/uL Lymphocytes # 2.2 (1.0-4.8) k/uL Monocytes # 0.5 (0-1.0) k/uL Eosinophils # 0.1 (0-0.7) k/uL Basophils # 0.0 (0-0.2) k/uL Hypochromasia Slight PT (9.0-12.0) sec INR (<1.2) APTT (22.0-30.0) sec Sodium 137 (137-145) mmol/L Potassium 4.4 (3.5-5.1) mmol/L Chloride 104 (98-107) mmol/L Carbon Dioxide 23 (22-30) mmol/L Anion Gap 10 mmol/L BUN 14 (7-17) mg/dL Creatinine 1.10 H (0.52-1.04) mg/dL Est GFR (MDRD) Af Amer 58 (>60 ml/min/1.73 sqM) Est GFR (MDRD) Non-Af 48 (>60 ml/min/1.73 sqM) Glucose 87 (74-99) mg/dL Plasma Lactic Acid Darryl (0.7-2.0) mmol/L Calcium 9.2 (8.4-10.2) mg/dL Magnesium 1.8 (1.6-2.3) mg/dL Total Bilirubin 0.4 (0.2-1.3) mg/dL AST 37 H (14-36) U/L ALT 30 (9-52) U/L Alkaline Phosphatase 90 (38-126) U/L Total Creatine Kinase 65 (30-135) U/L CK-MB (CK-2) 0.9 (0.0-2.4) ng/mL CK-MB (CK-2) Rel Index 1.4 Troponin I <0.012 (0.000-0.034) ng/mL Total Protein 7.2 (6.3-8.2) g/dL Albumin 4.1 (3.5-5.0) g/dL Serum Alcohol <10 mg/dL Influenza Type A RNA (Not Detectd) Influenza Type B (PCR) (Not Detectd) 08/17/17 08/17/17 08/17/17 Range/Units 15:50 15:50 17:30 WBC (3.8-10.6) k/uL RBC (3.80-5.40) m/uL Hgb (11.4-16.0) gm/dL Hct (34.0-46.0) % MCV (80.0-100.0) fL MCH (25.0-35.0) pg MCHC (31.0-37.0) g/dL RDW (11.5-15.5) % Plt Count (150-450) k/uL Neutrophils % % Lymphocytes % % Monocytes % % Eosinophils % % Basophils % % Neutrophils # (1.3-7.7) k/uL Lymphocytes # (1.0-4.8) k/uL Monocytes # (0-1.0) k/uL Eosinophils # (0-0.7) k/uL Basophils # (0-0.2) k/uL Hypochromasia PT 29.5 H (9.0-12.0) sec INR 3.3 H (<1.2) APTT 28.0 (22.0-30.0) sec Sodium (137-145) mmol/L Potassium (3.5-5.1) mmol/L Chloride (98-107) mmol/L Carbon Dioxide (22-30) mmol/L Anion Gap mmol/L BUN (7-17) mg/dL Creatinine (0.52-1.04) mg/dL Est GFR (MDRD) Af Amer (>60 ml/min/1.73 sqM) Est GFR (MDRD) Non-Af (>60 ml/min/1.73 sqM) Glucose (74-99) mg/dL Plasma Lactic Acid Darryl 0.8 (0.7-2.0) mmol/L Calcium (8.4-10.2) mg/dL Magnesium (1.6-2.3) mg/dL Total Bilirubin (0.2-1.3) mg/dL AST (14-36) U/L ALT (9-52) U/L Alkaline Phosphatase (38-126) U/L Total Creatine Kinase (30-135) U/L CK-MB (CK-2) (0.0-2.4) ng/mL CK-MB (CK-2) Rel Index Troponin I (0.000-0.034) ng/mL Total Protein (6.3-8.2) g/dL Albumin (3.5-5.0) g/dL Serum Alcohol mg/dL Influenza Type A RNA Not Detected (Not Detectd) Influenza Type B (PCR) Not Detected (Not Detectd) Disposition Clinical Impression: Bronchitis, Fuchs' corneal dystrophy Disposition: HOME SELF-CARE Condition: Good Instructions: Acute Bronchitis (ED) Additional Instructions: Please follow up with ophthalmology. Prescriptions: Azithromycin [Zithromax Z-pack] 0 mg PO DIRECTED #6 tab methylPREDNISolone Dose Pack [Medrol Dose Pack] 4 mg PO DIRECTED #21 package Referrals: Alan Gao MD [Primary Care Provider] - 1-2 days Time of Disposition: 19:08
[2017-08-17 16:34] LABS: INR 3.3 (<1.2); Prothrombin Time 29.5 sec (9.0-12.0)
[2017-08-17 16:35] LABS: Basophils % (A) 0 %; Eosinophils # (A) 0.1 k/uL (0-0.7); Eosinophils % (A) 2 %; HCT 43.7 % (34.0-46.0); HGB 13.3 gm/dL (11.4-16.0); Hypochromasia Slight; Lymphocytes # (A) 2.2 k/uL (1.0-4.8); Lymphocytes % (A) 30 %; MCH 28.9 pg (25.0-35.0); MCHC 30.4 g/dL (31.0-37.0); MCV 94.9 fL (80.0-100.0); Mean Platelet Volume 7.5; Monocytes # (A) 0.5 k/uL (0-1.0); Monocytes % (A) 7 %; Neutrophils # (A) 4.2 k/uL (1.3-7.7); Neutrophils % (A) 59 %; Platelet Count 259 k/uL (150-450); WBC 7.2 k/uL (3.8-10.6)
[2017-08-17 16:39] LABS: ALT 30 U/L (9-52); AST 37 U/L (14-36); Albumin 4.1 g/dL (3.5-5.0); Alcohol <10 mg/dL; Alkaline Phosphatase 90 U/L (38-126); Anion Gap 10 mmol/L; Blood Urea Nitrogen 14 mg/dL (7-17); Calcium 9.2 mg/dL (8.4-10.2); Carbon Dioxide 23 mmol/L (22-30); Chloride 104 mmol/L (98-107); Glucose 87 mg/dL (74-99); Magnesium 1.8 mg/dL (1.6-2.3); Potassium 4.4 mmol/L (3.5-5.1); Sodium 137 mmol/L (137-145); Total Bilirubin 0.4 mg/dL (0.2-1.3); Total Protein 7.2 g/dL (6.3-8.2)
[2017-08-17 16:46] LABS: Creatine Kinase 65 U/L (30-135)
[2017-08-17 16:58] LABS: Creatine Kinase MB 0.9 ng/mL (0.0-2.4); Troponin I <0.012 ng/mL (0.000-0.034)
[2017-08-17] MEDS ORDERED: PROPARACAINE 0.5% OPHTH DROPS 15 ML BTL ONE (17:12)
--- NOTE | 2017-08-17 18:22 | CT ---
EXAMINATION TYPE: CT brain wo con DATE OF EXAM: 08/17/2017 COMPARISON: 06/25/2017 HISTORY: Dizziness. CT DLP: 971 mGycm Automated exposure control for dose reduction was used. FINDINGS: There is cerebral cortical atrophy. There is no mass effect nor midline shift. There is no sign of in tracranial hemorrhage. There is a 5 x 3 cm area of hypodensity in the left parietal lobe sutton and whi te matter consistent with old infarct. The calvarium is intact. IMPRESSION: CEREBRAL ATROPHY. 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 CHRONIC SMALL VESSEL ISCHEMIA. NO CHANGE COMPAR ED TO OLD EXAM.
--- NOTE | 2017-08-17 18:47 | XR ---
EXAMINATION TYPE: XR chest 2V DATE OF EXAM: 08/17/2017 COMPARISON: 06/25/2017 HISTORY: Short of breath TECHNIQUE: Frontal and lateral views of the chest are obtained. FINDINGS: There is no heart failure nor confluent pneumonic infiltrate. Costophrenic angles are jose r. There is some pulmonary hyperinflation. Thoracic aorta is atheromatous. There is apparent old vert ebroplasty at T12. IMPRESSION: No active cardiopulmonary disease. No change. There is probably some COPD.
[2017-08-17 18:53] VITALS: BP 161/75; PULSE 62; RESP 20; TEMP 98.2
[2017-08-17] MEDS ORDERED: PROPARACAINE 0.5% OPHTH DROPS 15 ML BTL BOTH EYES STA (18:55)
[2017-08-17] MEDS ORDERED: methylPREDNISolone SOD SUCCI 125 MG/2 ML VIAL IM ONE (18:56)
== END 2017-08-17 19:25 | disposition home or self-care (01) ==
LOC: EC 15:06
DX: J40 Bronchitis, not specified as acute or chronic (principal); H18.51 Endothelial corneal dystrophy; I48.91 Unspecified atrial fibrillation; J44.9 Chronic obstructive pulmonary disease, unspecified; I25.10 Atherosclerotic heart disease of native coronary artery without angina pectoris; E78.5 Hyperlipidemia, unspecified; I10 Essential (primary) hypertension; I25.2 Old myocardial infarction; E07.9 Disorder of thyroid, unspecified; F41.9 Anxiety disorder, unspecified; F17.200 Nicotine dependence, unspecified, uncomplicated; Z95.5 Presence of coronary angioplasty implant and graft; Z86.73 Personal history of transient ischemic attack (TIA), and cerebral infarction without residual deficits; Z79.01 Long term (current) use of anticoagulants; Z79.82 Long term (current) use of aspirin; Z79.899 Other long term (current) drug therapy; Z91.048 Other nonmedicinal substance allergy status; Z91.040 Latex allergy status; Z91.018 Allergy to other foods; Z88.5 Allergy status to narcotic agent; Z88.0 Allergy status to penicillin; Z88.1 Allergy status to other antibiotic agents; Z91.013 Allergy to seafood; Z53.20 Procedure and treatment not carried out because of patient's decision for unspecified reasons
CPT/HCPCS: 36415; 94640; 93005; 80053; 82550; 82553; 83605; 83735; 84484; 85025; 85610; 85730; 87040; 80320; 87502; 71046; 70450; 99285; 96372; J2930; 87077; 87186

== ENCOUNTER 2017-09-28 16:10 | Emergency (ER) | payer MEDICARE ==
[2017-09-28 16:15] VITALS: BP 187/86; PULSE 77; RESP 20; TEMP 97.4
[2017-09-28] MEDS ORDERED: PROPARACAINE 0.5% OPHTH DROPS 15 ML BTL BOTH EYES STA (16:26)
[2017-09-28] MEDS ORDERED: PROPARACAINE 0.5% OPHTH DROPS 15 ML BTL ONE (16:28)
--- NOTE | 2017-09-28 17:02 | ED ---
General Adult HPI - General Chief complaint: Eye Problems Stated complaint: Eye Redness Time Seen by Provider: 09/28/17 16:26 Source: patient Mode of arrival: ambulatory Limitations: no limitations - History of Present Illness Initial comments: 77-year-old female presents for pain in the left eye starting yesterday at 1800. Patient states she was using a Kleenex to wipe her eye at this time when she suddenly noticed pain in the left eye. She states her left eye has been "runny" feels like there is something in it. It is sensitive to light and especially painful when she blinks. Denies any loss of vision but does state her vision is blurry due to the lacrimation. Denies any flashing lights or scintillations. Denies any pressure behind the eye. Patient went to [facility] but could not tolerate an eye exam so was sent here. Patient does have Fuch disease in the right eye and is awaiting a corneal transplant, currently managed by an mail censor in [place]. States that after the numbing drop was administered to the left eye discomfort was relieved. Patient states she is up-to-date on her tetanus. - Related Data Home Medications Medication Instructions Recorded Confirmed Sertraline HCl [Zoloft] 200 mg PO DAILY 09/16/14 08/17/17 Levothyroxine Sodium [Synthroid] 75 mcg PO DAILY 11/25/14 08/17/17 Montelukast [Singulair] 10 mg PO HS 11/25/14 08/17/17 Atorvastatin [Lipitor] 40 mg PO HS 10/20/15 08/17/17 Gabapentin [Neurontin] 1,200 mg PO BID 10/20/15 08/17/17 Aspirin EC [Ecotrin Low Dose] 81 mg PO DAILY 01/14/17 08/17/17 Cyclobenzaprine HCl 10 mg PO HS 01/28/17 08/17/17 Metoprolol Tartrate [Lopressor] 25 mg PO BID 08/17/17 08/17/17 Warfarin [Coumadin] 2.5 mg PO HS 08/17/17 08/17/17 amLODIPine [Norvasc] 5 mg PO DAILY PRN 08/17/17 08/17/17 Previous Rx's Medication Instructions Recorded Azithromycin [Zithromax Z-pack] 0 mg PO DIRECTED #6 tab 08/17/17 methylPREDNISolone Dose Pack 4 mg PO DIRECTED #21 package 08/17/17 [Medrol Dose Pack] Tobramycin 0.3% Ophth Soln [Tobrex 1 drop LEFT EYE Q4H 7 Days ml 09/28/17 0.3% Ophth Soln] Allergies Allergy/AdvReac Type Severity Reaction Status Date / Time iodine Allergy Severe throat Verified 09/28/17 16:15 Swelling latex Allergy Severe throat Verified 09/28/17 16:15 swelling banana Allergy Unknown Verified 09/28/17 16:15 Cross And Derivatives Allergy Unknown Verified 09/28/17 16:15 [Cross] codeine Allergy Nausea & Verified 09/28/17 16:15 Vomiting Penicillins Allergy Rash/Hives Verified 09/28/17 16:15 doxycycline AdvReac Nausea & Verified 09/28/17 16:15 Vomiting seafood Allergy Unknown Uncoded 09/28/17 16:15 Review of Systems ROS Statement: Those systems with pertinent positive or pertinent negative responses have been documented in the HPI. ROS Other: All systems not noted in ROS Statement are negative. 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 stone arthroscopic knee surgery, bilateral cataract removal, Past Anesthesia/Blood Transfusion Reactions: No Reported Reaction Additional Past Anesthesia/Blood Transfusion Reaction / Comment(s): . Date of Last Stent Placement:: 2014(not sure month) Past Psychological History: Anxiety Smoking Status: Current every day smoker Past Alcohol Use History: None Reported Past Drug Use History: None Reported - Past Family History Father Family Medical History: Cancer Additional Family Medical History / Comment(s): Father had massive [place] at age 66 yrs. He from CVA at age 79yrs. Mother Family Medical History: CVA/TIA, Deep Vein Thrombosis (DVT), Pulmonary Embolus Additional Family Medical History / Comment(s): Mother of CVA at age 79 yrs. General Exam Limitations: no limitations General appearance: alert, in no apparent distress Head exam: Present: atraumatic, normocephalic, normal inspection Eye exam: Present: PERRL, EOMI, conjunctival injection, other (Corneal abrasion noted on Barakat lamp at 5:00 on left eye. Patient had relief after the proparacaine drop was administered to the left eye). Absent: scleral icterus, nystagmus, periorbital swelling, periorbital tenderness ENT exam: Present: normal exam, mucous membranes moist Neurological exam: Present: alert, oriented X3 Psychiatric exam: Present: normal affect, normal mood Course Vital Signs 09/28/17 16:13 Temperature 97.4 F L Pulse Rate 77 Respiratory 20 Rate Blood Pressure 187/86 O2 Sat by Pulse 99 Oximetry Procedures - Procedures Initial comment: A drop of proparacaine was administered to the left eye. After that, fluorescing dye was administered to the left eye. A Barakat lamp was used to visualize the cornea and an abrasion was noted on the left eye at 5:00. Patient did feel relief after the proparacaine drop was administered. Medical Decision Making - Medical Decision Making 77-year-old female presented to the emergency department for pain in the left eyes starting last night. Patient did use Kleenex on IN pain started shortly after that. She is sensitive to light but denies any scintillations or loss of vision. He does have some blurring of the vision in her left eye. She has a history of Fuch disease and a right eye so will be referred to ophtho on-call. Will be administed antibiotic drops in the meantime. Disposition Clinical Impression: Corneal abrasion, left Disposition: HOME SELF-CARE Condition: Good Instructions: Abrasion (ED) Additional Instructions: Administer antibiotics to the left eye as directed. Follow up with ophthalmology. Return to emergency department if symptoms worsen or do not improve. Prescriptions: Tobramycin 0.3% Ophth Soln [Tobrex 0.3% Ophth Soln] 1 drop LEFT EYE Q4H 7 Days ml Referrals: Alan Gao MD [Primary Care Provider] - 1-2 days Time of Disposition: 17:08
== END 2017-09-28 17:19 | disposition home or self-care (01) ==
LOC: EC 16:10
DX: S05.02XA Injury of conjunctiva and corneal abrasion without foreign body, left eye, initial encounter (principal); H18.51 Endothelial corneal dystrophy; E78.5 Hyperlipidemia, unspecified; I48.91 Unspecified atrial fibrillation; I10 Essential (primary) hypertension; I25.10 Atherosclerotic heart disease of native coronary artery without angina pectoris; I69.351 Hemiplegia and hemiparesis following cerebral infarction affecting right dominant side; J44.9 Chronic obstructive pulmonary disease, unspecified; E07.9 Disorder of thyroid, unspecified; M19.90 Unspecified osteoarthritis, unspecified site; F41.9 Anxiety disorder, unspecified; I25.2 Old myocardial infarction; F17.200 Nicotine dependence, unspecified, uncomplicated; Z79.01 Long term (current) use of anticoagulants; Z79.82 Long term (current) use of aspirin; Z79.899 Other long term (current) drug therapy; Z88.0 Allergy status to penicillin; Z88.1 Allergy status to other antibiotic agents; Z88.5 Allergy status to narcotic agent; Z91.013 Allergy to seafood; Z91.018 Allergy to other foods; Z91.040 Latex allergy status; Z91.048 Other nonmedicinal substance allergy status; Z86.79 Personal history of other diseases of the circulatory system; Z98.890 Other specified postprocedural states; X58.XXXA Exposure to other specified factors, initial encounter
CPT/HCPCS: 99283

== ENCOUNTER 2017-10-09 23:48 | Observation (INO) | payer MEDICARE ==
[2017-10-09] MEDS ORDERED: SODIUM CHLORIDE 0.9% 1,000 ML IV ONE (23:56)
[2017-10-10] MEDS ORDERED: diphenhydrAMINE 50 MG/ML 1 ML VIAL IVP STA ×3 (00:03→00:26)
--- NOTE | 2017-10-10 00:04 | ED ---
Altered Mental Status HPI <Darius Cortez - Last Filed: 10/10/17 02:42> - General Source: EMS, RN notes reviewed, old records reviewed Mode of arrival: EMS Limitations: altered mental status - History of Present Illness MD Complaint: altered mental status, confusion <RamuBernabe - Last Filed: 10/10/17 14:29> - General Chief Complaint: Altered Mental Status Stated Complaint: Altered mental status Time Seen by Provider: 10/09/17 23:48 - History of Present Illness Initial Comments: This is a 76-year-old female history of heart disease hyperlipidemia CVA in the past who is brought in by EMS with complaints of altered mental status which began somewhere around dinnertime evening bleeding around 6 PM. The patient finally called EMS his prior to arrival because of this activity. No reports of any trauma no fevers chills nausea vomiting sweats rhinorrhea or other symptoms reported. Of note per paramedics patient is on warfarin also she had a bottle of Xanax 0.5 mg was filled on September 17 on her 20 tablets are missing. Patient's been agitated minimally responsive. She has been riding demonstrate no focal weakness. Patient had one prior episode of this activity in the past one. He was diagnosed with being delusional. No other information available at this time (Bernabe Guallpa) - Related Data Home Medications Medication Instructions Recorded Confirmed Sertraline HCl [Zoloft] 200 mg PO DAILY 09/16/14 10/10/17 Levothyroxine Sodium [Synthroid] 75 mcg PO DAILY 11/25/14 10/10/17 Montelukast [Singulair] 10 mg PO HS 11/25/14 10/10/17 Gabapentin [Neurontin] 1,200 mg PO BID 10/20/15 10/10/17 Aspirin EC [Ecotrin Low Dose] 81 mg PO DAILY 01/14/17 10/10/17 Cyclobenzaprine HCl 10 mg PO TID PRN 01/28/17 10/10/17 ALPRAZolam [Xanax] 0.5 mg PO TID PRN 10/10/17 10/10/17 Albuterol Inhaler [Ventolin Hfa 1 - 2 puff INHALATION RT-Q6H PRN 10/10/17 Inhaler] Atorvastatin [Lipitor] 80 mg PO HS 10/10/17 10/10/17 Metoprolol Tartrate [Lopressor] 12.5 mg PO BID 10/10/17 10/10/17 Tiotropium 18 Mcg/Puff [Spiriva] 1 cap INHALATION RT-DAILY 10/10/17 10/10/17 Warfarin [Coumadin] 2.5 mg PO DIRECTED 10/10/17 10/10/17 Warfarin [Coumadin] 5 mg PO DIRECTED 10/10/17 10/10/17 Allergies Allergy/AdvReac Type Severity Reaction Status Date / Time iodine Allergy Severe throat Verified 10/10/17 09:50 Swelling latex Allergy Severe throat Verified 10/10/17 09:50 swelling adhesive tape Allergy Unknown Verified 10/10/17 09:50 aspirin Allergy Unknown Verified 10/10/17 09:50 banana Allergy Unknown Verified 10/09/17 23:59 Peach And Derivatives Allergy Unknown Verified 10/09/17 23:59 [Peach] codeine Allergy Nausea & Verified 10/10/17 09:50 Vomiting hydrocodone Allergy Unknown Verified 10/10/17 09:50 Penicillins Allergy Rash/Hives Verified 10/10/17 09:50 doxycycline AdvReac Nausea & Verified 10/10/17 09:50 Vomiting seafood Allergy Unknown Uncoded 10/09/17 23:59 Review of Systems ROS Other: All systems not noted in ROS Statement are negative. <Darius Cortez - Last Filed: 10/10/17 02:42> ROS Other: All systems not noted in ROS Statement are negative. Limitations: ROS unobtainable due to patients medical condition <Bernabe Guallpa - Last Filed: 10/10/17 14:29> ROS Statement: Those systems with pertinent positive or pertinent negative responses have been documented in the HPI. 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 stone arthroscopic knee surgery, bilateral cataract removal, Past Anesthesia/Blood Transfusion Reactions: No Reported Reaction Additional Past Anesthesia/Blood Transfusion Reaction / Comment(s): . Date of Last Stent Placement:: 2014(not sure month) Past Psychological History: Anxiety Smoking Status: Current every day smoker Past Alcohol Use History: None Reported Past Drug Use History: None Reported - Past Family History Father Family Medical History: Cancer Additional Family Medical History / Comment(s): Father had massive ID at age 66 yrs. He from CVA at age 79yrs. Mother Family Medical History: CVA/TIA, Deep Vein Thrombosis (DVT), Pulmonary Embolus Additional Family Medical History / Comment(s): Mother of CVA at age 79 yrs. <Bernabe Guallpa - Last Filed: 10/10/17 14:29> General Exam <Darius Cortez - Last Filed: 10/10/17 02:42> Limitations: altered mental status General appearance: anxious, lethargic, other Head exam: Present: atraumatic (Agitated), normocephalic, normal inspection Eye exam: Present: normal appearance, PERRL, EOMI. Absent: scleral icterus, conjunctival injection, periorbital swelling Pupils: Present: other (Pupils are equal round and reactive) ENT exam: Present: mucous membranes dry, other (Patient does demonstrate some lip smacking and tongue protrusion) Neck exam: Present: normal inspection. Absent: tenderness, meningismus, lymphadenopathy Respiratory exam: Present: normal lung sounds bilaterally. Absent: respiratory distress, wheezes, rales, rhonchi, stridor Cardiovascular Exam: Present: regular rate, normal rhythm, normal heart sounds. Absent: systolic murmur, diastolic murmur, rubs, gallop, clicks GI/Abdominal exam: Present: soft, normal bowel sounds. Absent: distended, tenderness, guarding, rebound, rigid, bruit, pulsatile mass, hernia Rectal exam: Present: deferred Extremities exam: Present: normal inspection, full ROM, normal capillary refill. Absent: tenderness Back exam: Present: normal inspection Neurological exam: Present: altered, CN II-XII intact. Absent: motor sensory deficit Psychiatric exam: Present: agitated Skin exam: Present: warm, dry, intact, normal color. Absent: rash <RamuBernabe - Last Filed: 10/10/17 14:29> - General Exam Comments Initial Comments: This is a well-developed asthenic appearing female who is writhing in a dystonic type fashion she does somewhat respond to verbal questions commands but is not cooperative. (Bernabe Guallpa) Course <Darius Cortez - Last Filed: 10/10/17 02:42> <Bernabe Guallpa - Last Filed: 10/10/17 14:29> Vital Signs 10/09/17 10/10/17 10/10/17 23:54 01:01 02:20 Temperature 98.7 F Pulse Rate 74 73 61 Respiratory 20 20 20 Rate Blood Pressure 126/81 154/67 108/55 O2 Sat by Pulse 95 95 96 Oximetry 10/10/17 10/10/17 03:04 03:52 Temperature Pulse Rate 54 L 54 L Respiratory 20 20 Rate Blood Pressure 105/53 149/63 O2 Sat by Pulse 98 100 Oximetry The patient is reassessed at 2:43 AM, M.D., her EKG is a normal normal sinus rhythm ventricular rate is 61 TN interval is 172 QRS duration is 82 QT/QTc is 500/503 and 56 EKG does not reveal any ST elevation or ST depression. She came in with the agitation and confusion there was a question of altered mental status now head CT is normal chest x-rays normal troponin is 1. and urine is very very a positive family said in the past she had a bad the UTIs in and cause her some confusion and the change in mental status, the laboratory in the imaging details are discussed with the and the daughter and they were informed that she be admitted to Dr. Aguilar's service and they're agreeable to the (Darius Cortez) - Reevaluation(s) Reevaluation #1: 10/10/17 01:01 The patient demonstrates some agitation in spite of Benadryl she will be given IV Ativan. The patient's care will be endorsed to Dr. Cortez at our shift change. He will make the final disposition. (Bernabe Guallpa) Procedures - Restraint - Face to Face Restraint Occurrence 1 Patient's Immediate Situation: Endangers self safety Patient's Reaction to the Intervention: Bizarre, Restless, Resistive to care Patient's Medical & Behavioral Condition: Awake, Alert, Agitated Need to Continue or Terminate Restraint or Seclusion: Continue Face to Face Eval of Restraint Date: 10/09/17 Face to Face Eval of Restraint Time: 23:52 <Bernabe Guallpa - Last Filed: 10/10/17 14:29> Medical Decision Making - Lab Data Result diagrams: 10/10/17 00:00 10/10/17 00:00 <Darius Cortez - Last Filed: 10/10/17 02:42> - Lab Data Result diagrams: 10/10/17 00:00 10/10/17 00:00 <Bernabe Guallpa - Last Filed: 10/10/17 14:29> - Lab Data Lab Results 10/10/17 10/10/17 10/10/17 Range/Units 00:00 00:00 00:00 WBC 9.5 (3.8-10.6) k/uL RBC 4.21 (3.80-5.40) m/uL Hgb 11.8 (11.4-16.0) gm/dL Hct 37.2 (34.0-46.0) % MCV 88.5 D (80.0-100.0) fL MCH 28.1 (25.0-35.0) pg MCHC 31.7 (31.0-37.0) g/dL RDW 16.2 H (11.5-15.5) % Plt Count 250 (150-450) k/uL Neutrophils % 77 % Lymphocytes % 15 % Monocytes % 7 % Eosinophils % 0 % Basophils % 0 % Neutrophils # 7.3 (1.3-7.7) k/uL Lymphocytes # 1.4 (1.0-4.8) k/uL Monocytes # 0.6 (0-1.0) k/uL Eosinophils # 0.0 (0-0.7) k/uL Basophils # 0.0 (0-0.2) k/uL Anisocytosis Slight PT (9.0-12.0) sec INR (<1.2) APTT (22.0-30.0) sec Sodium 136 L (137-145) mmol/L Potassium 4.4 (3.5-5.1) mmol/L Chloride 104 (98-107) mmol/L Carbon Dioxide 19 L (22-30) mmol/L Anion Gap 13 mmol/L BUN 19 H (7-17) mg/dL Creatinine 1.20 H (0.52-1.04) mg/dL Est GFR (CKD-EPI)AfAm 51 (>60 ml/min/1.73 sqM) Est GFR (CKD-EPI)NonAf 44 (>60 ml/min/1.73 sqM) Glucose 119 H (74-99) mg/dL POC Glucose (mg/dL) (75-99) mg/dL POC Glu Dining Room Helper ID Plasma Lactic Acid Darryl (0.7-2.0) mmol/L Calcium 9.5 (8.4-10.2) mg/dL Magnesium 1.6 (1.6-2.3) mg/dL Total Bilirubin 0.4 (0.2-1.3) mg/dL AST 30 (14-36) U/L ALT 21 (9-52) U/L Alkaline Phosphatase 96 (38-126) U/L Ammonia (<30) umol/L Total Creatine Kinase 86 (30-135) U/L CK-MB (CK-2) 2.1 (0.0-2.4) ng/mL CK-MB (CK-2) Rel Index 2.4 Troponin I <0.012 (0.000-0.034) ng/mL Total Protein 6.6 (6.3-8.2) g/dL Albumin 3.8 (3.5-5.0) g/dL Amylase 97 (30-110) U/L Lipase 125 (23-300) U/L Urine Color Urine Appearance (Clear) Urine pH (5.0-8.0) Ur Specific Douglas (1.001-1.035) Urine Protein (Negative) Urine Glucose (UA) (Negative) Urine Ketones (Negative) Urine Blood (Negative) Urine Nitrite (Negative) Urine Bilirubin (Negative) Urine Urobilinogen (<2.0) mg/dL Ur Leukocyte Esterase (Negative) Urine RBC (0-5) /hpf Urine WBC (0-5) /hpf Ur Squamous Epith Cells (0-4) /hpf Amorphous Sediment (None) /hpf Urine Bacteria (None) /hpf Hyaline Casts (0-2) /lpf Urine Opiates Screen (NotDetected) Ur Oxycodone Screen (NotDetected) Urine Methadone Screen (NotDetected) Ur Propoxyphene Screen (NotDetected) Acetaminophen <10.0 ug/mL Ur Barbiturates Screen (NotDetected) U Tricyclic Antidepress (NotDetected) Ur Phencyclidine Scrn (NotDetected) Ur Amphetamines Screen (NotDetected) U Methamphetamines Scrn (NotDetected) U Benzodiazepines Scrn (NotDetected) Urine Cocaine Screen (NotDetected) U Marijuana (THC) Screen (NotDetected) Serum Alcohol <10 mg/dL 10/10/17 10/10/17 10/10/17 Range/Units 00:00 00:00 00:07 WBC (3.8-10.6) k/uL RBC (3.80-5.40) m/uL Hgb (11.4-16.0) gm/dL Hct (34.0-46.0) % MCV (80.0-100.0) fL MCH (25.0-35.0) pg MCHC (31.0-37.0) g/dL RDW (11.5-15.5) % Plt Count (150-450) k/uL Neutrophils % % Lymphocytes % % Monocytes % % Eosinophils % % Basophils % % Neutrophils # (1.3-7.7) k/uL Lymphocytes # (1.0-4.8) k/uL Monocytes # (0-1.0) k/uL Eosinophils # (0-0.7) k/uL Basophils # (0-0.2) k/uL Anisocytosis PT 19.7 H (9.0-12.0) sec INR 2.2 H (<1.2) APTT 29.7 (22.0-30.0) sec Sodium (137-145) mmol/L Potassium (3.5-5.1) mmol/L Chloride (98-107) mmol/L Carbon Dioxide (22-30) mmol/L Anion Gap mmol/L BUN (7-17) mg/dL Creatinine (0.52-1.04) mg/dL Est GFR (CKD-EPI)AfAm (>60 ml/min/1.73 sqM) Est GFR (CKD-EPI)NonAf (>60 ml/min/1.73 sqM) Glucose (74-99) mg/dL POC Glucose (mg/dL) 126 H (75-99) mg/dL POC Glu Dining Room Helper ID Ana Waters Plasma Lactic Acid Darryl 1.2 (0.7-2.0) mmol/L Calcium (8.4-10.2) mg/dL Magnesium (1.6-2.3) mg/dL Total Bilirubin (0.2-1.3) mg/dL AST (14-36) U/L ALT (9-52) U/L Alkaline Phosphatase (38-126) U/L Ammonia 17 (<30) umol/L Total Creatine Kinase (30-135) U/L CK-MB (CK-2) (0.0-2.4) ng/mL CK-MB (CK-2) Rel Index Troponin I (0.000-0.034) ng/mL Total Protein (6.3-8.2) g/dL Albumin (3.5-5.0) g/dL Amylase (30-110) U/L Lipase (23-300) U/L Urine Color Urine Appearance (Clear) Urine pH (5.0-8.0) Ur Specific Douglas (1.001-1.035) Urine Protein (Negative) Urine Glucose (UA) (Negative) Urine Ketones (Negative) Urine Blood (Negative) Urine Nitrite (Negative) Urine Bilirubin (Negative) Urine Urobilinogen (<2.0) mg/dL Ur Leukocyte Esterase (Negative) Urine RBC (0-5) /hpf Urine WBC (0-5) /hpf Ur Squamous Epith Cells (0-4) /hpf Amorphous Sediment (None) /hpf Urine Bacteria (None) /hpf Hyaline Casts (0-2) /lpf Urine Opiates Screen (NotDetected) Ur Oxycodone Screen (NotDetected) Urine Methadone Screen (NotDetected) Ur Propoxyphene Screen (NotDetected) Acetaminophen ug/mL Ur Barbiturates Screen (NotDetected) U Tricyclic Antidepress (NotDetected) Ur Phencyclidine Scrn (NotDetected) Ur Amphetamines Screen (NotDetected) U Methamphetamines Scrn (NotDetected) U Benzodiazepines Scrn (NotDetected) Urine Cocaine Screen (NotDetected) U Marijuana (THC) Screen (NotDetected) Serum Alcohol mg/dL 10/10/17 Range/Units 01:53 WBC (3.8-10.6) k/uL RBC (3.80-5.40) m/uL Hgb (11.4-16.0) gm/dL Hct (34.0-46.0) % MCV (80.0-100.0) fL MCH (25.0-35.0) pg MCHC (31.0-37.0) g/dL RDW (11.5-15.5) % Plt Count (150-450) k/uL Neutrophils % % Lymphocytes % % Monocytes % % Eosinophils % % Basophils % % Neutrophils # (1.3-7.7) k/uL Lymphocytes # (1.0-4.8) k/uL Monocytes # (0-1.0) k/uL Eosinophils # (0-0.7) k/uL Basophils # (0-0.2) k/uL Anisocytosis PT (9.0-12.0) sec INR (<1.2) APTT (22.0-30.0) sec Sodium (137-145) mmol/L Potassium (3.5-5.1) mmol/L Chloride (98-107) mmol/L Carbon Dioxide (22-30) mmol/L Anion Gap mmol/L BUN (7-17) mg/dL Creatinine (0.52-1.04) mg/dL Est GFR (CKD-EPI)AfAm (>60 ml/min/1.73 sqM) Est GFR (CKD-EPI)NonAf (>60 ml/min/1.73 sqM) Glucose (74-99) mg/dL POC Glucose (mg/dL) (75-99) mg/dL POC Glu Dining Room Helper ID Plasma Lactic Acid Darryl (0.7-2.0) mmol/L Calcium (8.4-10.2) mg/dL Magnesium (1.6-2.3) mg/dL Total Bilirubin (0.2-1.3) mg/dL AST (14-36) U/L ALT (9-52) U/L Alkaline Phosphatase (38-126) U/L Ammonia (<30) umol/L Total Creatine Kinase (30-135) U/L CK-MB (CK-2) (0.0-2.4) ng/mL CK-MB (CK-2) Rel Index Troponin I (0.000-0.034) ng/mL Total Protein (6.3-8.2) g/dL Albumin (3.5-5.0) g/dL Amylase (30-110) U/L Lipase (23-300) U/L Urine Color Yellow Urine Appearance Cloudy H (Clear) Urine pH 7.5 (5.0-8.0) Ur Specific Douglas 1.014 (1.001-1.035) Urine Protein Trace H (Negative) Urine Glucose (UA) Negative (Negative) Urine Ketones Negative (Negative) Urine Blood Negative (Negative) Urine Nitrite Positive H (Negative) Urine Bilirubin Negative (Negative) Urine Urobilinogen <2.0 (<2.0) mg/dL Ur Leukocyte Esterase Large H (Negative) Urine RBC 2 (0-5) /hpf Urine WBC 156 H (0-5) /hpf Ur Squamous Epith Cells <1 (0-4) /hpf Amorphous Sediment Occasional H (None) /hpf Urine Bacteria Occasional H (None) /hpf Hyaline Casts 1 (0-2) /lpf Urine Opiates Screen Not Detected (NotDetected) Ur Oxycodone Screen Not Detected (NotDetected) Urine Methadone Screen Not Detected (NotDetected) Ur Propoxyphene Screen Not Detected (NotDetected) Acetaminophen ug/mL Ur Barbiturates Screen Not Detected (NotDetected) U Tricyclic Antidepress Detected H (NotDetected) Ur Phencyclidine Scrn Not Detected (NotDetected) Ur Amphetamines Screen Not Detected (NotDetected) U Methamphetamines Scrn Not Detected (NotDetected) U Benzodiazepines Scrn Detected H (NotDetected) Urine Cocaine Screen Not Detected (NotDetected) U Marijuana (THC) Screen Not Detected (NotDetected) Serum Alcohol mg/dL Disposition <Darius Cortez - Last Filed: 10/10/17 02:42> <Bernabe Guallpa - Last Filed: 10/10/17 14:29> Clinical Impression: Change in mental status, UTI (urinary tract infection), Agitation Disposition: ADMITTED IP TO THIS [facility] Condition: Good
[2017-10-10 00:11] LABS: Anisocytosis Slight; Basophils % (A) 0 %; Eosinophils % (A) 0 %; HCT 37.2 % (34.0-46.0); HGB 11.8 gm/dL (11.4-16.0); Lymphocytes # (A) 1.4 k/uL (1.0-4.8); Lymphocytes % (A) 15 %; MCH 28.1 pg (25.0-35.0); MCHC 31.7 g/dL (31.0-37.0); Monocytes # (A) 0.6 k/uL (0-1.0); Monocytes % (A) 7 %; Neutrophils # (A) 7.3 k/uL (1.3-7.7); Neutrophils % (A) 77 %; Platelet Count 250 k/uL (150-450); RBC 4.21 m/uL (3.80-5.40); RDW 16.2 % (11.5-15.5); WBC 9.5 k/uL (3.8-10.6)
[2017-10-10 00:12] LABS: Glucose,Whole Blood 126 mg/dL (75-99)
[2017-10-10 00:21] LABS: ALT 21 U/L (9-52); AST 30 U/L (14-36); Acetaminophen <10.0 ug/mL; Albumin 3.8 g/dL (3.5-5.0); Alcohol <10 mg/dL; Alkaline Phosphatase 96 U/L (38-126); Amylase 97 U/L (30-110); Anion Gap 13 mmol/L; Blood Urea Nitrogen 19 mg/dL (7-17); Calcium 9.5 mg/dL (8.4-10.2); Carbon Dioxide 19 mmol/L (22-30); Chloride 104 mmol/L (98-107); Glucose 119 mg/dL (74-99); Lipase 125 U/L (23-300); Magnesium 1.6 mg/dL (1.6-2.3); Potassium 4.4 mmol/L (3.5-5.1); Sodium 136 mmol/L (137-145); Total Bilirubin 0.4 mg/dL (0.2-1.3); Total Protein 6.6 g/dL (6.3-8.2)
[2017-10-10 00:22] LABS: Lactic Acid, Venous 1.2 mmol/L (0.7-2.0)
[2017-10-10 00:23] LABS: INR 2.2 (<1.2); Partial Thromboplastin Time 29.7 sec (22.0-30.0); Prothrombin Time 19.7 sec (9.0-12.0)
[2017-10-10 00:30] LABS: MCV 88.5 fL (80.0-100.0)
[2017-10-10 00:38] LABS: Creatine Kinase 86 U/L (30-135)
[2017-10-10 00:51] LABS: Creatine Kinase MB 2.1 ng/mL (0.0-2.4); Troponin I <0.012 ng/mL (0.000-0.034)
[2017-10-10] MEDS ORDERED: LORazepam 2 MG/ML INJ IV STA (00:54)
--- NOTE | 2017-10-10 01:32 | CT ---
EXAMINATION TYPE: CT brain wo con DATE OF EXAM: 10/10/2017 COMPARISON: 08/17/2017 HISTORY: AMS CT DLP: 1059.70 mGycm Automated exposure control for dose reduction was used. FINDINGS: There is some cerebral cortical atrophy. There is old left parietal lobe 4 cm cortical infarct. There is no midline shift. There is no sign of intracranial hemorrhage. The calvarium appears intact. IMPRESSION: THERE IS SOME CEREBRAL ATROPHY AND CHRONIC SMALL VESSEL ISCHEMIA. 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 NO CHANGE COMPARED TO OLD EXAM.
--- NOTE | 2017-10-10 01:34 | XR ---
EXAMINATION TYPE: XR chest 1V portable DATE OF EXAM: 10/10/2017 COMPARISON: 08/17/2017 HISTORY: Altered mental status. TECHNIQUE: Single frontal view of the chest is obtained. FINDINGS: There is no heart failure nor confluent pneumonic infiltrate. Costophrenic angles are jose r. Thoracic aorta is atheromatous. Exam is limited by supine technique. There are chest leads. IMPRESSION: No active cardiopulmonary disease. No change.
[2017-10-10 02:24] LABS: Amorphous Sediment,Urine Occasional /hpf; Appearance,Urine Cloudy (Clear); Bacteria,Urine Occasional /hpf; Bilirubin,Urine Negative (Negative); Blood,Urine Negative (Negative); Color,Urine Yellow; Glucose,Urine (UA) Negative (Negative); Hyaline Casts,Urine 1 /lpf (0-2); Ketones,Urine Negative (Negative); Leukocyte Esterase,Urine Large (Negative); Nitrite,Urine Positive (Negative); PH, Urine 7.5 (5.0-8.0); Protein,Urine Trace (Negative); RBC,Urine 2 /hpf (0-5); Specific Gravity,Urine 1.014 (1.001-1.035); Squamous Epithelial Cell,Urine <1 /hpf (0-4); Urobilinogen,Urine <2.0 mg/dL (<2.0); WBC,Urine 156 /hpf (0-5)
[2017-10-10 02:25] LABS: Amphetamine Screen,Urine Not Detected (NotDetected); Barbiturate Screen,Urine Not Detected (NotDetected); Benzodiazepines Screen,Urine Detected (NotDetected); Cocaine Screen,Urine Not Detected (NotDetected); Methadone Screen, Urine Not Detected (NotDetected); Opiate Screen,Urine Not Detected (NotDetected); Oxycodone Screen, Urine Not Detected (NotDetected); Phencyclidine Screen,Urine Not Detected (NotDetected); Tricyclic Antidepressant,Urine Detected (NotDetected); Urn Cannabinoid Scrn Not Detected (NotDetected)
[2017-10-10] MEDS ORDERED: cefTRIAXone IN SWFI 2,000 MG/20 ML SYRINGE IVP STA (02:38)
[2017-10-10] MEDS ORDERED: SODIUM CHLORIDE 0.9% 1,000 ML IV ONE (02:40)
[2017-10-10] MEDS ORDERED: NALOXONE 0.4 MG/ML 1 ML VIAL IV PRN (03:33)
[2017-10-10] MEDS ORDERED: ACETAMINOPHEN TAB 325 MG TAB PO PRN (03:33)
[2017-10-10] MEDS ORDERED: ONDANSETRON 4 MG/2 ML VIAL IVP PRN (03:33)
[2017-10-10] MEDS ORDERED: amLODIPine 5 MG TAB PO PRN (03:36)
[2017-10-10 04:29] LABS: Glucose,Whole Blood 98 mg/dL (75-99)
[2017-10-10] MEDS: FLUMAZENIL 0.1 MG/ML 5 ML VIAL IVP STA ×4 (04:44→04:59)
[2017-10-10] MEDS: TOBRAMYCIN 0.3% OPHTH DROPS 5 ML BTL LEFT EYE SCH ×5 (05:26→21:58)
[2017-10-10 05:43] LABS: ABG PH 7.25 (7.35-7.45)
[2017-10-10 05:44] LABS: ABG HCO3 21 mmol/L (21-25); ABG PCO2 48 mmHg (35-45); ABG PO2 94 mmHg (83-108)
[2017-10-10 05:45] LABS: ABG Base Excess -5.9 mmol/L; ABG Oxygen Saturation 96.9 % (94-97); ABG TCO2 23 mmol/L (19-24)
[2017-10-10] MEDS ORDERED: HALOPERIDOL LACTATE 5 MG/ML 1 ML VIAL IM STA (07:15)
[2017-10-10] MEDS ORDERED: methylPREDNISolone 4 MG TAB TAPER PO SCH (09:00)
[2017-10-10] MEDS: ASPIRIN 81 MG PO SCH (10:58)
[2017-10-10] MEDS: METOPROLOL TARTRATE 12.5 MG TAB PO SCH ×2 (10:59→21:58)
[2017-10-10] MEDS: GABAPENTIN 400 MG CAP PO SCH ×2 (10:59→21:58)
[2017-10-10] MEDS: LEVOTHYROXINE 75 MCG TAB PO SCH (10:59)
[2017-10-10] MEDS: SERTRALINE 100 MG TAB PO SCH (10:59)
[2017-10-10] MEDS ORDERED: ALPRAZolam 0.5 MG TAB PO PRN (12:06)
[2017-10-10] MEDS ORDERED: ALPRAZolam 0.5 MG TAB PO STA (16:02)
--- NOTE | 2017-10-10 16:19 | P.CN ---
Psychiatric Consult - . Consult date: 10/10/17 Consult:: 10/10/17 16:05 Identification: Patient is a 77-year-old female who was brought to the emergency room due to confusion and agitation at home. Reason for Consult: Altered mental status History of Present Illness: Patient's chart was reviewed, spoke with Dr. Yancey her outpatient psychiatrist and her was present as was her daughter. Patient's states that last evening while eating dinner patient began getting increasingly confused, thrashing about getting up and down and was not making any sense. Patient's states that she been doing well prior to that in patient's medications are handled by [facility] other than her Xanax which she takes care of herself. Patient was unable to give any history. Patient's daughter and were the main historians. Patient is being seen by Dr. Yancey as an outpatient for her depression and anxiety and has been stable for a number of years per her daughter. In speaking with Dr. Yancey the patient Xanax was decreased in March 2017 to a dose of 0.5 mg in the morning 1 mg in the afternoon and 0.5 mg at bedtime which the patient has been taking on a regular basis. Patient is also been maintained on Zoloft 200 mg daily. Patient's daughter reports that the patient had been doing well until the day of admission. Patient's reports that 3 days prior to admission the patient and her son got into an argument and she has been more anxious since that time and they have not seen him since that time. I was unable to find out what the fight was between she and her son. Patient has a long history with prior admissions to psychiatric units and has been treated for depression and anxiety for a number of years. Past Psychiatric History: Patient has a number of prior inpatient admissions in the remote past and currently has been seeing Dr. Yancey for several years and maintained on Zoloft 200 mg a day and Xanax 0.5 mg in the morning 1 mg in the afternoon and 0.5 mg at bedtime. Past Medical/Surgical History: Patient has a history of hyperlipidemia, status post CVA, atrial fibrillation, coronary artery disease, hypothyroidism, hypertension, status post myocardial infarction Social History: Patient has been for 42 years and lives with her and has 3 children. Patient and her live together and he reports no financial difficulties or conflict between them. Substance Use History: Patient is not currently using any drugs or alcohol Mental status: Appearance/Attitude: Patient is lying in a hospital bed, appears confused Behavior: Patient is not exhibiting any psychomotor retardation or agitation Speech/Language: Patient tries to respond to some questions but is confused and unable to do so, she speaks in a soft voice Thought Process: Patient is confused, unable to respond to most questions Thought Content: Patient does not appear to be responding to internal stimuli, there is no evidence of any paranoid or delusional ideation. Patient does not appear to be having any visual hallucinations at this time. Suicidal/Homicidal Ideation: Unable to assess Sensorium/Cognition: Patient is alert and oriented to person and that she is in a hospital, further testing was not performed at this time Mood/Affect: Patient's mood is anxious and her affect is appropriate to her mood Assessment: Patient appears to become delirious secondary to a urinary tract infection, she also has multiple medical problems. Patient has been maintained on Zoloft and Xanax for her depression and anxiety for a number of years and in speaking with Dr. Yancey they have been slowly trying to decrease her Xanax. Patient is confused, oriented only to person and situation she was unable to give me any history and most of the history was obtained from her either her daughter, or Dr. Yancey. At this time the patient is cooperative with nursing staff, her daughter feels that she has improved from last evening when she was in the emergency room. Diagnosis: Delirium secondary to medical condition; history of a major depressive disorder and anxiety disorder Plan: patient will continue on Zoloft 200 mg daily, will adjust her Xanax dosage to a scheduled dose and at the amount she has been on at home which is 0 point 5 in the morning, 1 mg in the afternoon and 0.5 mg at bedtime to prevent any withdrawal. Patient will continue to be followed while she is in the hospital and assess whether there needs to be any further changes to her medication.
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
[2017-10-10] MEDS: MONTELUKAST 10 MG TAB PO SCH (21:58)
[2017-10-10] MEDS: ATORVASTATIN 40 MG TAB PO SCH (21:58)
[2017-10-10] MEDS: ALPRAZolam 0.5 MG TAB PO SCH (21:58)
[2017-10-10] MEDS: CYCLOBENZAPRINE 10 MG TAB PO SCH (21:58)
[2017-10-10] MEDS: WARFARIN 2.5 MG TAB PO SCH (21:59)
[2017-10-11] MEDS: TOBRAMYCIN 0.3% OPHTH DROPS 5 ML BTL LEFT EYE SCH ×6 (00:02→21:35)
[2017-10-11] MEDS: cefTRIAXone IN SWFI 1,000 MG/10 ML SYRINGE IVP SCH (05:57)
[2017-10-11] MEDS: SERTRALINE 100 MG TAB PO SCH (07:29)
[2017-10-11] MEDS: GABAPENTIN 400 MG CAP PO SCH ×2 (07:30→20:07)
[2017-10-11] MEDS: METOPROLOL TARTRATE 12.5 MG TAB PO SCH ×2 (07:30→20:07)
[2017-10-11] MEDS: ALPRAZolam 0.5 MG TAB PO SCH ×2 (07:31→20:06)
[2017-10-11] MEDS: LEVOTHYROXINE 75 MCG TAB PO SCH (07:31)
[2017-10-11] MEDS: ASPIRIN 81 MG PO SCH (07:31)
[2017-10-11 08:29] LABS: Anisocytosis Slight; Basophils % (A) 0 %; Eosinophils # (A) 0.1 k/uL (0-0.7); Eosinophils % (A) 1 %; HCT 44.6 % (34.0-46.0); HGB 14.2 gm/dL (11.4-16.0); Lymphocytes # (A) 1.9 k/uL (1.0-4.8); Lymphocytes % (A) 21 %; MCH 28.8 pg (25.0-35.0); MCHC 31.8 g/dL (31.0-37.0); MCV 90.6 fL (80.0-100.0); Mean Platelet Volume 7.6; Monocytes # (A) 0.6 k/uL (0-1.0); Monocytes % (A) 7 %; Neutrophils # (A) 6.2 k/uL (1.3-7.7); Neutrophils % (A) 69 %; Platelet Count 256 k/uL (150-450); RBC 4.92 m/uL (3.80-5.40); RDW 16.2 % (11.5-15.5)
[2017-10-11 08:46] LABS: Calcium 9.1 mg/dL (8.4-10.2); Potassium 3.7 mmol/L (3.5-5.1); Total Bilirubin 0.4 mg/dL (0.2-1.3)
[2017-10-11 12:50] LABS: Prothrombin Time 18.2 sec (9.0-12.0)
--- NOTE | 2017-10-11 13:54 | P.PN ---
Progress Note - Text Progress Note Date: 10/11/17 Interval History: Patient is a 77-year-old female who is being seen in follow- up to a consultation yesterday. Patient was in the room with her , patient was alert and able to respond to all questions today. She reported that she is no longer feeling as confused as she did yesterday. Patient's reports that she is back to her baseline. Patient reported that she has been sleeping and eating well. Patient reported no complaints. Mental Status: Appearance/Attitude: Patient was sitting in hospital bed, in no acute distress and made good eye contact and was cooperative. Behavior: Patient did not exhibit any psychomotor agitation or retardation Speech/Language: Patient responded to questions with a brief pause, her speech was of normal volume and she was coherent Thought Process: Patient's responses were goal-directed, no evidence of tangential or circumstantial speech and no loose associations or flight of ideas. Thought Content: Patient denied any auditory or visual hallucinations no delusions or paranoid ideation were elicited. Patient reported that she was sleeping and eating well. Patient reported that she is no longer feeling as confused as she did yesterday. Patient's felt that she would return to her baseline. Suicidal/Homicidal Ideation: Patient denied any current suicidal or homicidal ideation. Sensorium/Cognition: Patient was alert and oriented to person, location, situation and knew the month and year and her recent and remote memory were not formally tested. Patient was able to respond to questions such as how long she has been , she knew and her wedding anniversary was Mood/Affect: Patient's mood was pleasant and her affect appropriate Assessment: patient appears to have returned to her baseline functioning, she is eating and sleeping well and is no longer confused and is responding to questions appropriately. Patient did report to me that she did have some burning on urination for a day or so prior to her admission. Patient reports no complaints of anxiety or depression at this time. Plan: Patient should continue on Zoloft 200 mg daily, Xanax 0.5 mg in the morning, 1 mg in the afternoon and 0.5 mg at bedtime and will follow up with Dr. Yancey as scheduled previously in his office. I will sign off the case at this time.
[2017-10-11] MEDS ORDERED: ALPRAZolam 1 MG TAB PO SCH (16:00)
[2017-10-11] MEDS: ATORVASTATIN 40 MG TAB PO SCH (20:06)
[2017-10-11] MEDS: MONTELUKAST 10 MG TAB PO SCH (20:07)
[2017-10-11] MEDS: CYCLOBENZAPRINE 10 MG TAB PO SCH (20:07)
[2017-10-11] MEDS: WARFARIN 2.5 MG TAB PO SCH (20:08)
[2017-10-12] MEDS: TOBRAMYCIN 0.3% OPHTH DROPS 5 ML BTL LEFT EYE SCH ×4 (01:01→13:42)
[2017-10-12] MEDS: cefTRIAXone IN SWFI 1,000 MG/10 ML SYRINGE IVP SCH (05:41)
[2017-10-12 07:28] LABS: Anisocytosis Slight; Basophils % (A) 0 %; Eosinophils # (A) 0.1 k/uL (0-0.7); Eosinophils % (A) 2 %; HCT 42.5 % (34.0-46.0); HGB 13.1 gm/dL (11.4-16.0); Hypochromasia Slight; Lymphocytes % (A) 29 %; MCH 28.2 pg (25.0-35.0); MCHC 30.9 g/dL (31.0-37.0); MCV 91.2 fL (80.0-100.0); Monocytes # (A) 0.6 k/uL (0-1.0); Monocytes % (A) 9 %; Neutrophils # (A) 4.1 k/uL (1.3-7.7); Neutrophils % (A) 58 %; Platelet Count 257 k/uL (150-450); RBC 4.66 m/uL (3.80-5.40); RDW 16.2 % (11.5-15.5)
[2017-10-12 07:30] LABS: INR 1.9 (<1.2); Prothrombin Time 17.2 sec (9.0-12.0)
[2017-10-12 07:42] LABS: Albumin 3.6 g/dL (3.5-5.0); Calcium 8.7 mg/dL (8.4-10.2); Potassium 3.5 mmol/L (3.5-5.1); Total Bilirubin 0.2 mg/dL (0.2-1.3); Total Protein 6.6 g/dL (6.3-8.2)
[2017-10-12 07:45] VITALS: BP 188/82; PULSE 57; RESP 20; TEMP 98
[2017-10-12] MEDS: GABAPENTIN 400 MG CAP PO SCH (09:04)
[2017-10-12] MEDS: ASPIRIN 81 MG PO SCH (09:04)
[2017-10-12] MEDS: ALPRAZolam 0.5 MG TAB PO SCH (09:04)
[2017-10-12] MEDS: LEVOTHYROXINE 75 MCG TAB PO SCH (09:05)
[2017-10-12] MEDS: SERTRALINE 100 MG TAB PO SCH (09:05)
[2017-10-12] MEDS: METOPROLOL TARTRATE 12.5 MG TAB PO SCH (09:05)
[2017-10-12] MEDS ORDERED: amLODIPine 5 MG TAB PO SCH (21:00)
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
== END 2017-10-12 15:24 | disposition home or self-care (01) ==
LOC: EC 23:48 → 5ONC 10-10 03:36
PROVIDERS: ADMIT Family Medicine; ATTEND Family Medicine
DX: G93.41 Metabolic encephalopathy (principal); N39.0 Urinary tract infection, site not specified; E86.0 Dehydration; I25.10 Atherosclerotic heart disease of native coronary artery without angina pectoris; I73.9 Peripheral vascular disease, unspecified; Z85.72 Personal history of non-Hodgkin lymphomas; I48.0 Paroxysmal atrial fibrillation; J44.9 Chronic obstructive pulmonary disease, unspecified; E03.9 Hypothyroidism, unspecified; R45.1 Restlessness and agitation; E78.5 Hyperlipidemia, unspecified; Z79.899 Other long term (current) drug therapy; Z79.82 Long term (current) use of aspirin; Z79.01 Long term (current) use of anticoagulants; Z88.6 Allergy status to analgesic agent; Z88.1 Allergy status to other antibiotic agents; Z91.040 Latex allergy status; Z88.5 Allergy status to narcotic agent; Z88.0 Allergy status to penicillin; Z91.013 Allergy to seafood; Z91.018 Allergy to other foods; Z91.048 Other nonmedicinal substance allergy status; J45.909 Unspecified asthma, uncomplicated; I25.2 Old myocardial infarction; M19.90 Unspecified osteoarthritis, unspecified site; I69.351 Hemiplegia and hemiparesis following cerebral infarction affecting right dominant side; Z95.5 Presence of coronary angioplasty implant and graft; F41.9 Anxiety disorder, unspecified; F17.200 Nicotine dependence, unspecified, uncomplicated; Z78.1 Physical restraint status; I12.9 Hypertensive chronic kidney disease with stage 1 through stage 4 chronic kidney disease, or unspecified chronic kidney disease; N18.3 Chronic kidney disease, stage 3 (moderate); M54.9 Dorsalgia, unspecified; G89.29 Other chronic pain; Z92.21 Personal history of antineoplastic chemotherapy; G62.9 Polyneuropathy, unspecified; D64.9 Anemia, unspecified; M81.0 Age-related osteoporosis without current pathological fracture; Z95.9 Presence of cardiac and vascular implant and graft, unspecified; I73.1 Thromboangiitis obliterans [Buerger's disease]; M32.9 Systemic lupus erythematosus, unspecified; N17.9 Acute kidney failure, unspecified; K21.9 Gastro-esophageal reflux disease without esophagitis; F05 Delirium due to known physiological condition; F32.9 Major depressive disorder, single episode, unspecified
CPT/HCPCS: 36415; 36600; 70450; 71045; 80053; 80306; 80320; 81001; 82140; 82150; 82550; 82553; 82805; 83520; 83605; 83690; 83735; 84443; 84484; 85025; 85610; 85730; 87086; 93005; 96361; 96372; 96374; 96375; 96376; 99285

== ENCOUNTER 2017-12-27 08:17 | Emergency (ER) | payer MEDICARE ==
[2017-12-27] MEDS ORDERED: MIDAZOLAM (PF) 1 MG/ML 5 ML VIAL IV STA (08:18)
[2017-12-27] MEDS ORDERED: ROCURONIUM BROMIDE 10 MG/ML 10 ML VIAL IV STA (08:19)
[2017-12-27] MEDS ORDERED: METOPROLOL TARTRATE 5 MG/5 ML VIAL IVP STA (08:29)
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
[2017-12-27] MEDS ORDERED: DILTIAZEM 50 MG in SODIUM CHLORIDE 0.9% 40 ML IV ONE (08:38)
[2017-12-27] MEDS ORDERED: DILTIAZEM 5 MG/1 ML (25ML VIAL) IV STA (08:40)
[2017-12-27] MEDS ORDERED: PROPOFOL 1,000 MG in EMPTY BAG 1 BAG IV ONE (08:46)
[2017-12-27 08:47] LABS: Appearance,Urine Clear (Clear); Bilirubin,Urine Negative (Negative); Blood,Urine Negative (Negative); Color,Urine Light Yellow; Glucose,Urine (UA) Negative (Negative); Ketones,Urine 1+ (Negative); Leukocyte Esterase,Urine Negative (Negative); Nitrite,Urine Negative (Negative); Protein,Urine Negative (Negative); Specific Gravity,Urine 1.008 (1.001-1.035); Urobilinogen,Urine <2.0 mg/dL (<2.0)
[2017-12-27 08:51] LABS: ABG Base Excess -4.9 mmol/L; ABG HCO3 22 mmol/L (21-25); ABG Oxygen Saturation 99.4 % (94-97); ABG PCO2 51 mmHg (35-45); ABG PH 7.25 (7.35-7.45); ABG PO2 227 mmHg (83-108); ABG TCO2 24 mmol/L (19-24)
--- NOTE | 2017-12-27 08:57 | XR ---
EXAMINATION TYPE: XR chest 1V portable DATE OF EXAM: 12/27/2017 COMPARISON: Prior chest x-ray 10/10/2014 HISTORY: Chest pain TECHNIQUE: Single frontal view of the chest is obtained. FINDINGS: Endotracheal tube is overlying the tracheal air column, distal tip is at the level of the pari. NG tube is in place, distal tip is within the stomach. No pneumothorax or pleural effusion is overlying defibrillator pad overlying cardiac leads. Interstitium is prominent. Pulmonary vascularit y and milton are stable. IMPRESSION: Interval intubation as described. Report relayed to Dr. Wright at the time of interpr etation.
[2017-12-27 08:59] VITALS: TEMP 101.3
[2017-12-27] MEDS ORDERED: PANTOPRAZOLE 40 MG/10 ML VIAL IVP STA (09:12)
[2017-12-27] MEDS ORDERED: VANCOMYCIN IV PER PHARMACY 1 EACH MISC MISCELLANE PRN (09:12)
[2017-12-27] MEDS ORDERED: LEVOFLOXACIN 500MG-D5W PMX 500 MG in DEXTROSE/WATER 1 100ML.BAG IVPB STA (09:13)
[2017-12-27] MEDS ORDERED: VANCOMYCIN 1,250 MG in SODIUM CHLORIDE 0.9% 250 ML IVPB STA (09:19)
[2017-12-27] MEDS ORDERED: NALOXONE 0.4 MG/ML 1 ML VIAL IV PRN (09:20)
[2017-12-27 09:28] LABS: Anisocytosis Slight; Basophils % (A) 0 %; Eosinophils # (A) 0.1 k/uL (0-0.7); Eosinophils % (A) 0 %; HCT 35.6 % (34.0-46.0); HGB 11.1 gm/dL (11.4-16.0); Hypochromasia Marked; Lymphocytes # (A) 1.2 k/uL (1.0-4.8); Lymphocytes % (A) 5 %; MCH 29.3 pg (25.0-35.0); MCHC 31.2 g/dL (31.0-37.0); MCV 93.9 fL (80.0-100.0); Mean Platelet Volume 7.7; Monocytes % (A) 9 %; Neutrophils # (A) 17.9 k/uL (1.3-7.7); Neutrophils % (A) 84 %; Platelet Count 400 k/uL (150-450); RDW 16.9 % (11.5-15.5); WBC 21.3 k/uL (3.8-10.6)
[2017-12-27 09:38] LABS: Partial Thromboplastin Time 34.1 sec (22.0-30.0); Prothrombin Time 27.2 sec (9.0-12.0)
[2017-12-27 09:40] LABS: Albumin 4.1 g/dL (3.5-5.0); Calcium 8.5 mg/dL (8.4-10.2); Magnesium 1.6 mg/dL (1.6-2.3); Potassium 3.8 mmol/L (3.5-5.1); Total Bilirubin 0.5 mg/dL (0.2-1.3); Total Protein 6.8 g/dL (6.3-8.2)
[2017-12-27] MEDS ORDERED: LABETALOL 5 MG/ML VIAL MDV IVP STA (09:43)
[2017-12-27] MEDS ORDERED: PHYTONADIONE 10 MG in SODIUM CHLORIDE 0.9% 50 ML IVPB STA (09:43)
[2017-12-27 09:47] LABS: Poikilocytosis (M) Present
[2017-12-27] MEDS ORDERED: MANNITOL 20% IV ONE (09:51)
--- NOTE | 2017-12-27 09:52 | CT ---
EXAMINATION TYPE: CT brain wo con DATE OF EXAM: 12/27/2017 COMPARISON: 10/10/2017 HISTORY: Unresponsive CT DLP: [address] of the brain was performed. There is a large left-sided subdural hematoma the left frontal parietal intraparenchymal components. Subdural hematoma extends from the left frontal to the left parietal regions with greatest transverse measurement of approximately 2.6 cm. Hemorrhage is also noted within the third ventricle extending i nto the fourth ventricle. Superimposed subarachnoid component not excluded. Small amount of hemorrhag e within the interhemispheric fissure. There is left to right shift of approximately 1.4 cm with subfalcine herniation. There is a evidence of descending transtentorial herniation. IMPRESSION: 1. Large left-sided acute subdural hematoma with intraparenchymal components and probable subarachnoi d component. There is also hemorrhage within the third and fourth ventricles. 2 subfalcine herniation with descending transtentorial herniation. Left to right shift as noted. Results discussed with the ER physician at the time of exam completion.
[2017-12-27 09:59] VITALS: BP 108/56
[2017-12-27] MEDS: MORPHINE SULFATE 2 MG/ML SYRINGE IVP STA ×2 (10:12→10:22)
[2017-12-27] MEDS ORDERED: MANNITOL IV ONE (10:15)
[2017-12-27 10:21] LABS: Creatine Kinase MB 1.8 ng/mL (0.0-2.4)
[2017-12-27 10:24] LABS: Troponin I 0.285 ng/mL (0.000-0.034)
[2017-12-27 10:25] VITALS: PULSE 0; RESP 0
[2017-12-28] MEDS ORDERED: VANCOMYCIN 1,250 MG in SODIUM CHLORIDE 0.9% 250 ML IVPB SCH (06:00)
== END 2017-12-27 12:04 | disposition expired ==
LOC: EC 08:17
DX: I62.9 Nontraumatic intracranial hemorrhage, unspecified (principal); I48.91 Unspecified atrial fibrillation; G93.5 Compression of brain; R00.0 Tachycardia, unspecified; R11.10 Vomiting, unspecified; J44.9 Chronic obstructive pulmonary disease, unspecified; I25.10 Atherosclerotic heart disease of native coronary artery without angina pectoris; I10 Essential (primary) hypertension; G62.9 Polyneuropathy, unspecified; E03.9 Hypothyroidism, unspecified; I73.9 Peripheral vascular disease, unspecified; F41.9 Anxiety disorder, unspecified; I25.2 Old myocardial infarction; F17.200 Nicotine dependence, unspecified, uncomplicated; Z79.01 Long term (current) use of anticoagulants; Z79.82 Long term (current) use of aspirin; Z79.51 Long term (current) use of inhaled steroids; Z79.899 Other long term (current) drug therapy; Z88.0 Allergy status to penicillin; Z88.1 Allergy status to other antibiotic agents; Z88.5 Allergy status to narcotic agent; Z88.6 Allergy status to analgesic agent; Z91.018 Allergy to other foods; Z91.040 Latex allergy status; Z91.09 Other allergy status, other than to drugs and biological substances; Z86.79 Personal history of other diseases of the circulatory system; Z87.01 Personal history of pneumonia (recurrent); Z95.5 Presence of coronary angioplasty implant and graft; Z82.49 Family history of ischemic heart disease and other diseases of the circulatory system; Z85.72 Personal history of non-Hodgkin lymphomas; Z92.21 Personal history of antineoplastic chemotherapy
CPT/HCPCS: 36415; 36600; 94002; 93005; 83880; 80053; 82550; 82553; 82805; 83605; 83690; 83735; 84484; 85025; 85610; 85730; 81003; 87040; 87070; 87205; 71045; 70450; 99291; 99292; 31500; 96365; 96366 ×2; 96368; 96375; J2250; J2270; J2704